=== PATIENT | female | born 1935 | race Caucasian/White ===

== ENCOUNTER 2017-03-25 17:17 | Inpatient (IN) ==
[2017-03-25] MEDS ORDERED: ONDANSETRON 4 MG/2 ML VIAL IV PRN (17:55)
[2017-03-25] MEDS ORDERED: ALBUTEROL 2.5 MG/3 ML NEB RESP TX PRN (17:55)
[2017-03-25] MEDS ORDERED: GLUCAGON 1 MG VIAL IM PRN (17:59)
[2017-03-25] MEDS ORDERED: DEXTROSE 50% 25 GM/50 ML SYRINGE IV PRN (17:59)
[2017-03-25 19:21] LABS: Basophils % 0.3 % (0.0-0.8); Eosinophils % 0.1 % (0.00-10.9); Hematocrit 31.1 VOL% (35.7-47.0); Hemoglobin 10.3 GM/DL (12.0-16.0); Immature Granulocytes % 2.4 %; Immature Granulocytes Absolute 0.28 #; Lymphocytes # 1.8 10*3/uL (1.4-4.0); Lymphocytes % 15.6 % (21.3-54.2); Mean Corpuscular HGB Conc 33.1 GM/DL (32-36); Mean Corpuscular Hemoglobin 29 PG (27-34); Mean Corpuscular Volume 87.6 FL (87-102); Mean Platelet Volume 9.7 FL (9.6-12.0); Monocytes # 0.8 10*3/uL (0.11-0.8); Monocytes % 6.9 % (1.7-12.7); Neutrophils # 8.7 10*3/uL (1.4-7.4); Neutrophils % 74.7 % (38.7-73.9); Platelet Count 410 T/CUMM (130-400); Red Blood Count 3.55 MC/CUMM (3.8-5.5); Red Cell Distribution Width 15.5 % (9.3-17.3); White Blood Count 11.7 T/CUMM (4-12)
--- NOTE | 2017-03-25 19:30 | Hospitalist History & Physical ---
Assessment and Plan (1) Renal failure Status: Acute Assessment and plan: Admit to ICU. Gentle hydration. Consult nephrology to eval. Avoid nephrotoxic agents. Renal ultrasound in am. Daily bmps Current Visit: Yes (2) Diabetes Status: Acute Assessment and plan: Pt. has been hypoglycemic. Hold oral agents. Schedule accuchecks achs and prn. Diabetic diet. Current Visit: Yes (3) Hypertension Status: Acute Assessment and plan: Pt. has history of htn currently hypotensive. hold those meds for now. gentle hydration. Current Visit: Yes History of Present Illness Chief complaint: hypoglycemia History of present illness: Ms. Ritter is a 81 year old white female with a history of hypertension, diabetes , memory loss, and elevated cholesterol that is a direct admit from [facility] ED for further evaluation of hypoglycemia and renal failure. Pt. was seen and examined in CCU bed 126 with family ( and son) present at the bedside. Pt.'s family states that for the last 2 weeks she has seen a decrease in appetite as well as low blood sugars in the 20s and 30s. Pt's also reports that 2 days ago she began to experience nausea and vomiting. He states that she has "just not been feeling well". He states that today he took her blood sugar and it was in the 20s. He reported the patient was very weak and somewhat confused.They took her to the ED in [facility] where she was noted to have a low blood sugar. She received D50 and was started on an infusion. ER physician Dr. Quan noted that her BUN and creatinine were 104 and 8.4 respectively. Patient also had a bicarb of 13. She was transferred to our facility for higher level of care. Pt was accepted by Dr. Acosta. Pt's and son deny any prior history of renal insufficiency in the patient. Pt. denies any change in her urinary output. Repeat labs were drawn and a CXR was ordered. We will monitor patient. Nephrology will be consulted. Home Medications Medication Instructions Recorded Confirmed Type Aspirin EC Tab 325 mg PO DAILY 03/25/17 03/25/17 History Furosemide Tab [Lasix Tab] 20 mg PO DAILY 03/25/17 03/25/17 History Glimepiride 4 mg PO DAILY 03/25/17 03/25/17 History Lisinopril/Hydrochlorothiazide 1 each PO DAILY 03/25/17 03/25/17 History [Lisinopril-Hctz 10-12.5 mg Tab] Simvastatin 40 mg PO DAILY W/SUPPER 03/25/17 03/25/17 History metFORMIN [Glucophage] 1,000 mg PO BID W/MEALS 03/25/17 03/25/17 History Allergies Allergy/AdvReac Type Severity Reaction Status Date / Time No Known Allergies Allergy Verified 03/25/17 17:52 Medical,Surgical,& Family Hx - Medical History Cardio: History of: Hypertension Endocrine: History of: Diabetes Mellitus (IDDM), Dyslipidemia Renal: History of: Renal Failure - Surgical History Abdominal Surgeries: Surgical HX of: Appendectomy Reproductive Surgeries: Surgical HX of;: Hysterectomy Orthopedic Surgeries: Surgical HX of;: Orthopedic Surgery (surgery for broken arm) - Social History Smoking Status: Never smoker Frequency of Alcohol Use: None Type of Drug Use: None Marital Status: Lives With:: Spouse Functional capacity: uses cane/walker 12 point system: reviewed and no additional remarkable complaints except as stated Exam - Constitutional Vitals: Period Temp Pulse Resp BP Sys/Terrazas Pulse Ox Last 24 Hr 97.8 F 92-94 16-21 94-104/55-61 98-99 General appearance: no acute distress - Head Head exam: Present: normal inspection, normocephalic - Eye Eye exam: Present: EOMI Pupils: Present: MARCIANO - Neck Neck exam: Present: normal inspection - Respiratory Respiratory exam: Present: clear to auscultation bilaterally. Absent: wheezes - Cardiovascular Cardiovascular exam: Present: regular rate and rhythm - GI/Abdominal GI/Abdominal exam: Present: normal bowel sounds, soft. Absent: tenderness - Neurological Exam Neurological exam: Present: alert, oriented X3 - Psychiatric Psychiatric exam: Present: normal affect, normal mood - Skin Skin exam: Present: normal color, warm, dry Results - Labs CBC & BMP: 03/25/17 19:00 Lab Results: I have reviewed the past 24 hour labs Labs: Labs reviewed from outside facility. Glucose 28 BUN 108 Creatinine 8.4 Calcium 9.2 sodium 135 Potassium 5.3 Chloride 90 Bicarbonate 13 Anion gap 36.9 WBC 12.9 RBC 3.77 Hgb 10.9 HCT 33.4 MCV 88.6 MCH 28.9 MCV HC 32.6 Platelets 460 Neutrophils 82.4 Lymphocytes 12.5
[2017-03-25 19:45] LABS: Osmolality,Calculated 294.8 MOS/KG (273-304)
[2017-03-25 19:46] LABS: Apearance,Urine CLOUDY (Clear); Bacteria,Urine Few /HPF (Few); Bilirubin,Urine Negative (Negative); Blood, Urine Small mg/dL (Negative); Glucose,Urine (UA) Negative (Negative); Ketones,Urine Negative (Negative); Nitrite,Urine Negative (Negative); Protein,Urine 100 MG/DL; Urine Color Yellow (Yellow); Urine Specific Gravity 1.008 (1.001-1.035); Urine Urobilinogen < 2.0 EU/DL (0.2-1.0); WBC,Urine 12532 /HPF (0-6)
[2017-03-25 19:47] LABS: Potassium 6.4 MMOL/L (3.5-5.1)
[2017-03-25 19:58] LABS: Lactic Acid 14.3 MMOL/L (0.4-2.0)
[2017-03-25] MEDS ORDERED: SODIUM CHLORIDE 0.9% 1,000 ML IV SCH (20:00)
--- NOTE | 2017-03-25 20:00 | XRay Report ---
Exam: XR chest 1V portable Date: 03/25/2017 7:26 PM Indication: Cough Comparison: None Technical: AP portable Findings: A right total shoulder prosthesis present. External cardiac leads are present. The heart is mildly prominent with minimal paradoxical cuffing a few small calcified nodes are suspected in the right perihilar region. No defined effusions or consolidating infiltrate. No pneumothorax. Impression: 1. No obvious consolidating infiltrate or effusion. 2. Stable position a right total shoulder prosthesis PROCEDURE INTERPRETED AT [facility] DEPARTMENT OF RADIOLOGY Final Report Signed by: Dr. Errol Carlos
[2017-03-25] MEDS ORDERED: ALBUTEROL 2.5 MG/3 ML NEB RESP TX ONE (20:32)
[2017-03-25] MEDS ORDERED: SODIUM POLYSTYRENE SULFATE 15 GM/60 ML BOTTLE PO STA (20:33)
[2017-03-25] MEDS ORDERED: CALCIUM GLUCONATE 2,000 MG in SODIUM CHLORIDE 0.9% 100 ML IV ONE (21:00)
[2017-03-25 21:06] LABS: ABG Base Excess -16.2 MMOL/L (-2.5-2.5); ABG HCO3 12.2 MMOL/L (20-26); ABG Oxygen Saturation 97.4 % (95-100); ABG PCO2 23.8 MM HG (35-48); ABG PH 7.236 (7.35-7.45); ABG TCO2 9.4 MMOL/L (23-27); Allen Test Positive; Pt O2 Delivery Device Room Air
[2017-03-25] MEDS: cefTRIAXone 2,000 MG in SODIUM CHLORIDE 0.9% 100 ML IV SCH (21:27)
[2017-03-25] MEDS: SODIUM BICARB INJ 50 MEQ in DEXTROSE 5% NACL 0.45% 1,000 ML IV SCH (21:28)
--- NOTE | 2017-03-26 04:00 | Event Note ---
IV access was lost on the patient. I attempted to place a triple-lumen catheter and a right femoral. The area was cleaned and draped in a sterile fashion. Introducer needle was inserted and good venous blood return was noted. However the needle slipped into the the artery when the wire was placed in the needle. When I inserted the triple lumen catheter it became apparent that this was an arterial bleed as opposed to a venous bleed. The catheter was along with the wire was taken out. Pressure dressing applied. Since patient is stable I would recommend that interventional radiology place a PICC line. Patient tolerated the procedure.
[2017-03-26] MEDS ORDERED: PROMETHAZINE 25 MG/1 ML VIAL IM PRN (04:36)
[2017-03-26] MEDS ORDERED: cefTRIAXone 1,000 MG VIAL IM SCH (05:00)
[2017-03-26 05:51] LABS: Basophils % 0.2 % (0.0-0.8); Hematocrit 29.1 VOL% (35.7-47.0); Immature Granulocytes % 1.5 %; Lymphocytes # 1.6 10*3/uL (1.4-4.0); Lymphocytes % 11.5 % (21.3-54.2); Mean Corpuscular HGB Conc 34.4 GM/DL (32-36); Mean Corpuscular Hemoglobin 29 PG (27-34); Mean Corpuscular Volume 84.6 FL (87-102); Mean Platelet Volume 10.2 FL (9.6-12.0); Monocytes # 0.8 10*3/uL (0.11-0.8); Monocytes % 5.6 % (1.7-12.7); Neutrophils % 81.2 % (38.7-73.9); Platelet Count 408 T/CUMM (130-400); Red Blood Count 3.44 MC/CUMM (3.8-5.5); Red Cell Distribution Width 15.3 % (9.3-17.3); White Blood Count 13.5 T/CUMM (4-12)
[2017-03-26 05:58] LABS: INR 1.1; PT Patient Result 11.9 SECS
[2017-03-26 06:22] LABS: Calcium 8.6 MG/DL (8.5-10.1); Magnesium 2.4 MG/DL (1.8-2.4); Osmolality,Calculated 295.7 MOS/KG (273-304); Potassium 5.8 MMOL/L (3.5-5.1); Risk Ratio 3.23; VLDL CHOLESTEROL 9.4 MG/DL
--- NOTE | 2017-03-26 07:58 | Ultrasound Report ---
Renal ultrasound Indication: Renal failure Comparison: None available Findings: Kidneys are normal in size with increased parenchymal echogenicity. There is a cyst on the lower pole of the left kidney that measures up to 1.3 cm in size. No hydronephrosis or nephrolithiasis is seen. The right renal length is 9.0 cm. The left renal length is 9.6 cm. No free fluid or other abnormality is seen. Impression: Slightly small echogenic kidneys. Simple appearing left renal cyst. No other evidence of abnormality demonstrated. Ultrasound images stored and captured. PROCEDURE INTERPRETED AT [facility] DEPARTMENT OF RADIOLOGY Final Report Signed by: Dr. Ignacio Ferro
[2017-03-26] MEDS: cefTRIAXone 2,000 MG in SODIUM CHLORIDE 0.9% 100 ML IV SCH (08:45)
--- NOTE | 2017-03-26 10:53 | Post Interventional Procedure ---
Pre-op diagnosis: urosepsis Post-op diagnosis: same Procedure: PICC placement Contrast: none Flouroscopy: 0.6 min Radiologist: Israel Fregoso Anesthesia: local Specimens: none sent Estimated blood loss: none Complications: none Condition: stable Description/Findings: 5 Fr dual lumen picc placement done and ready for use Assessment and Plan - Time spent with patient Time spent with patient: Less than 30 minutes
--- NOTE | 2017-03-26 10:57 | Interventional Radiology Rpt ---
IR PICC line insertion, US guide vascular access IR PICC Placement Peripherally-inserted central catheter (PICC) placement using ultrasound and fluoroscopic guidance Ultrasound of the left upper extremity Clinical Information: 81-year-old female with urosepsis. Failed attempt at bedside central line placement. All other IV access has been lost. PICC line is requested. Physician: Dr. Fregoso Procedure: The patient was advised of the benefits, risks, and alternatives of the procedure and informed consent was obtained. A time out was performed with verification of the patient's name, MRN, site of procedure, and type of procedure to be performed. The patient was positioned in the supine position on the angiographic table. The site was prepped and draped in the usual sterile fashion. Additionally, maximal sterile barrier technique was employed for the procedure. A label machine operator radiograph reveals no relevant abnormality. Ultrasound examination of the left arm demonstrates patent and compressible brachial and basilic veins. The cephalic vein is also widely patent and compressible. The left arm was prepped and draped in the usual sterile fashion. The left cephalic vein was again identified. Using ultrasound guidance, a 21 gauge needle was used to access the vein. A permanent ultrasound recording of vascular access was obtained for the patient's record. A 0.018" cope wire was then advanced into the vein. The needle was exchanged for a 5 Yemeni peel-away sheath. A 5 Yemeni double lumen Bard Solo PICC catheter was measured and trimmed to the 43 cm karel. The PICC line was advanced through the sheath and into the central circulation. The catheter tip was positioned at the cavo-atrial junction. The peel-away sheath was then removed. At the conclusion of the procedure, the catheter was secured in place using a Stat-Lock device. A sterile dressing was applied. The lumens aspirate and flush freely. The catheter is ready for immediate use. The patient tolerated the procedure well and was returned to the PRU in stable condition. EBL: < 5 mL. Complications: None. Fluoroscopy time: 0.6 minutes Total number of images for this study: 3 Conclusion: Successful placement of a 5 Yemeni double lumen Bard Solo power injectable PICC via the left cephalic vein. The catheter is ready for immediate use. PROCEDURE INTERPRETED AT [facility] DEPARTMENT OF RADIOLOGY Final Report Signed by: Israel Fregoso
[2017-03-26 11:32] LABS: ABG Base Excess -12.9 MMOL/L (-2.5-2.5); ABG Oxygen Saturation 97.2 % (95-100); ABG PCO2 25.2 MM HG (35-48); ABG PH 7.297 (7.35-7.45); ABG PO2 104.4 MM HG (80-95); ABG TCO2 12.8 MMOL/L (23-27); Allen Test Positive; Pt O2 Delivery Device Room Air
[2017-03-26] MEDS ORDERED: SODIUM CHLORIDE 0.9% 1,000 ML IV ONE (12:02)
[2017-03-26] MEDS ORDERED: SODIUM CHLORIDE 0.9% 500 ML IV ONE ×2 (12:04→14:30)
--- NOTE | 2017-03-26 12:07 | Hospitalist Progress Note ---
Assessment and Plan (1) Sepsis Status: Acute Assessment and plan: 1)sepsis from urinary source- on ceftriaxone, cultures pending. She has an elevated WBC today. She is afebrile. Her SBP has been in 70-90 at times and now that she has access she can receive agressive IVF resuscitation. 2)diabetes- ssi 3)IV access- PICC line today. 4)metabolic acidosis- from sepsis and renal failure. on bicarb infusion 5)ANGIE on CKD- creatinine is up to nearly 9. Hopefully this will improve with time and hydration and resolution of sepsis. Dr Acosta also had concnerns about metformin toxicity- this has been stopped. 6)hyperkalemia-improved, monitor. recheck in a couple of hours and retreat if indicated. Current Visit: Yes (2) Acute on chronic renal failure Status: Acute Current Visit: Yes (3) Metabolic acidosis Status: Acute Current Visit: Yes (4) Hyperkalemia Status: Acute Current Visit: Yes (5) Diabetes Status: Acute Current Visit: Yes Hospitalist: Subjective Interval history: Mrs Ritter is alert this morning and nauseated. She denies pain or shortness of breath but "feels(s) bad". Last night Dr Jefferson attempted right inguinal TLC but did not get it and she is to have PICC line today- we called this morning and IR arranged the schedule to do it then since she remains acidotic with hypotension and could not get IVF any other way. Good UOP. Exam - Constitutional Vitals: Period Temp Pulse Resp BP Sys/Terrazas Pulse Ox Last 24 Hr 97.8 F-98.3 F 91-97 13-21 85-112/37-61 96-99 General appearance: no acute distress, over weight - Head Head exam: Present: normocephalic, atraumatic - Eye Eye exam: Present: EOMI. Absent: scleral icterus - Respiratory Respiratory exam: Present: clear to auscultation bilaterally - Cardiovascular Cardiovascular exam: Present: regular rate and rhythm - GI/Abdominal GI/Abdominal exam: Present: normal bowel sounds, soft. Absent: tenderness - Extremities Exam Extremities exam: Absent: edema - Neurological Exam Neurological exam: Present: alert. Absent: oriented X3 - Skin Skin exam: Present: warm, dry Results - Labs CBC & BMP: 03/26/17 04:48 03/26/17 04:48
--- NOTE | 2017-03-26 13:07 | Nephrology Consult Note ---
History of Present Illness Chief complaint: Acute renal failure History of present illness: Ms. Ritter is a 81 year old female admitted on 03/25/2017 for nausea vomiting and acute renal failure. Patient apparently started having nausea and vomiting about 2 days prior to her admission. Apparently for the past 2 weeks or so the patient has had a decreased appetite per family. We were asked see the patient for acute renal failure and lactic acidosis. The patient's creatinine on admission was around 8.5 mg/dL and remains around this value to day. Patient also was noted to have a lactate level of around 13 and was taking Metformin. The patient also was on SEBLE inhibitor and diuretics. Patient denies any decrease in her urine output. She denies fever chills or any chest pain. She does take Advil on occasion but states she has not taken any recently. ROS: Head - denies headaches ENT - denies sore throat Lymphatics - denies lymphadenopathy Hematology - denies bleeding problems Heart - denies chest pain Lungs - denies shortness of breath Abdomen - denies abdominal pain Musculoskeletal - denies arthritis Skin - denies rash Neurology - denies stroke General - denies fever PE: General: in no acute distress Eyes: Pupils are round and reactive, conjunctivae are clear ENT: Nose is clear, O/P is benign Neck: Supple, no thyromegaly Lymphatics: No cervical, supraclavicular or axillary adenopathy Heart: Regular rate and rhythm, no edema Lungs: Clear to auscultation anteriorly, chest expansion symmetric Abdomen: Soft, normoactive bowel sounds, no hepatomegaly Musculoskeletal: No joint erythema or effusions or joint asymmetry Skin: Normal turgor, normal hydration, no rash Neuro/Psych: Alert and cooperative with fair insight Home Medications Medication Instructions Recorded Confirmed Type Aspirin EC Tab 325 mg PO DAILY 03/25/17 03/25/17 History Furosemide Tab [Lasix Tab] 20 mg PO DAILY 03/25/17 03/25/17 History Glimepiride 4 mg PO DAILY 03/25/17 03/25/17 History Lisinopril/Hydrochlorothiazide 1 each PO DAILY 03/25/17 03/25/17 History [Lisinopril-Hctz 10-12.5 mg Tab] Simvastatin 40 mg PO DAILY W/SUPPER 03/25/17 03/25/17 History metFORMIN [Glucophage] 1,000 mg PO BID W/MEALS 03/25/17 03/25/17 History Allergies Allergy/AdvReac Type Severity Reaction Status Date / Time No Known Allergies Allergy Verified 03/25/17 17:52 Medical,Surgical,& Family Hx - Medical History Cardio: History of: Hypertension Endocrine: History of: Diabetes Mellitus (IDDM), Dyslipidemia Renal: History of: Renal Failure - Surgical History Abdominal Surgeries: Surgical HX of: Appendectomy Reproductive Surgeries: Surgical HX of;: Hysterectomy Orthopedic Surgeries: Surgical HX of;: Orthopedic Surgery (surgery for broken arm) - Social History Smoking Status: Never smoker Frequency of Alcohol Use: None Type of Drug Use: None Exam - Vital Signs Vital signs: Period Temp Pulse Resp BP Sys/Terrazas Pulse Ox Last 24 Hr 97.8 F-98.3 F 91-97 13-21 85-112/37-61 96-99 Results - Labs CBC & BMP: 03/26/17 04:48 03/26/17 04:48 Assessment and Plan (1) Renal failure Status: Acute Assessment and plan: This patient has an acute renal injury related to volume depletion in the face of SEBLE inhibition and diuretics. I agree with the IV fluids. Her renal ultrasound showed some increased echogenicity in her kidneys. But no hydronephrosis Current Visit: Yes (2) Lactic acidosis Status: Acute Assessment and plan: I suspect this is related to her metformin use, we will increase the bicarbonate and her IV fluids. Current Visit: Yes (3) Diabetes Status: Acute Current Visit: Yes (4) Hyperkalemia Status: Acute Assessment and plan: This is improving and should continue to increase as we hydrate her and correct her acidosis Current Visit: Yes (5) Hypertension Status: Acute Current Visit: Yes (6) Metabolic acidosis Status: Acute Current Visit: Yes
[2017-03-26] MEDS: SODIUM BICARB INJ 150 MEQ in DEXTROSE 5% 1,000 ML IV SCH (15:03)
[2017-03-26 15:40] LABS: Calcium 7.4 MG/DL (8.5-10.1); Osmolality,Calculated 298.8 MOS/KG (273-304); Potassium 5.4 MMOL/L (3.5-5.1)
[2017-03-26] MEDS: SIMVASTATIN 40 MG TABLET PO SCH (17:17)
[2017-03-27 03:16] LABS: ABG Base Excess 0.7 MMOL/L (-2.5-2.5); ABG HCO3 25.1 MMOL/L (20-26); ABG PCO2 36.7 MM HG (35-48); ABG PH 7.437 (7.35-7.45); ABG PO2 89.7 MM HG (80-95); ABG TCO2 22.9 MMOL/L (23-27); Allen Test Positive; Pt O2 Delivery Device Room Air
[2017-03-27] MEDS: SODIUM BICARB INJ 150 MEQ in DEXTROSE 5% 1,000 ML IV SCH (04:27)
[2017-03-27] MEDS: SODIUM BICARB INJ 50 MEQ in DEXTROSE 5% NACL 0.45% 1,000 ML IV SCH (04:28)
[2017-03-27 06:48] LABS: Basophils % 0.3 % (0.0-0.8); Eosinophils # 0.2 10*3/uL (0.0-0.87); Eosinophils % 1.6 % (0.00-10.9); Hemoglobin 9.1 GM/DL (12.0-16.0); Immature Granulocytes % 0.7 %; Immature Granulocytes Absolute 0.07 #; Lymphocytes # 2.2 10*3/uL (1.4-4.0); Lymphocytes % 22.6 % (21.3-54.2); Mean Corpuscular HGB Conc 36.4 GM/DL (32-36); Mean Corpuscular Hemoglobin 29 PG (27-34); Mean Corpuscular Volume 80.1 FL (87-102); Mean Platelet Volume 9.9 FL (9.6-12.0); Neutrophils # 6.3 10*3/uL (1.4-7.4); Neutrophils % 64.8 % (38.7-73.9); Platelet Count 339 T/CUMM (130-400); Red Blood Count 3.12 MC/CUMM (3.8-5.5); Red Cell Distribution Width 14.8 % (9.3-17.3); White Blood Count 9.7 T/CUMM (4-12)
[2017-03-27 07:26] LABS: Calcium 7.1 MG/DL (8.5-10.1); Osmolality,Calculated 306.5 MOS/KG (273-304); Potassium 4.7 MMOL/L (3.5-5.1)
--- NOTE | 2017-03-27 08:12 | Nephrology Progress Note ---
Nephrology - PN: Subj Interval history: Patient feels better today. She still does not have much of an appetite. She denies nausea or vomiting. Review of systems: Pulmonary-patient denies shortness of breath Physical exam general the patient's chronically ill-appearing, she has no pitting edema, abdomen is soft with positive bowel sounds Assessment/plan 1. Acute renal failure-patient's creatinine is down to 8.1 mg/ dL, she had about 1100 cc of urine output over 24 hours yesterday, her blood urea nitrogen level did increase to around 120 from 110 yesterday. There is no acute indication for hemodialysis, will continue to monitor for recovery 2. Metabolic acidosis-patient's anion gap acidosis has improved markedly, I am going to adjust her IV fluids 3. Diabetes mellitus 4. Hypertension 5. UTI-continue antibiotics, E. coli grew out of her urine Exam (PN)-Nephrology - Vital Signs Vital signs: Period Temp Pulse Resp BP Sys/Terrazas Pulse Ox Last 24 Hr 98.1 F-98.9 F 78-109 12-23 86-142/44-83 94-99 - Lab 03/27/17 05:50 03/27/17 05:50 Most recent lab results ABG pH 7.437 (7.35-7.45) 03/27/17 03:16 ABG pCO2 36.7 MM HG (35-48) 03/27/17 03:16 ABG pO2 89.7 MM HG (80-95) 03/27/17 03:16 ABG HCO3 25.1 MMOL/L (20-26) 03/27/17 03:16 ABG O2 Saturation 98.0 % (95-100) 03/27/17 03:16 Calcium 7.1 MG/DL (8.5-10.1) L 03/27/17 05:50 Magnesium 2.4 MG/DL (1.8-2.4) 03/26/17 04:48 Assessment and Plan (1) Renal failure Status: Acute Assessment and plan: This patient has an acute renal injury related to volume depletion in the face of SEBLE inhibition and diuretics. I agree with the IV fluids. Her renal ultrasound showed some increased echogenicity in her kidneys. But no hydronephrosis Current Visit: Yes (2) Lactic acidosis Status: Acute Assessment and plan: I suspect this is related to her metformin use, we will increase the bicarbonate and her IV fluids. Current Visit: Yes (3) Diabetes Status: Acute Current Visit: Yes (4) Hyperkalemia Status: Acute Assessment and plan: This is improving and should continue to increase as we hydrate her and correct her acidosis Current Visit: Yes (5) Hypertension Status: Acute Current Visit: Yes (6) Metabolic acidosis Status: Acute Current Visit: Yes
--- NOTE | 2017-03-27 08:16 | XRay Report ---
XR chest 1V portable Indication: Sepsis Comparison: Chest x-ray March 25, 2017 Technique: Single frontal view of the chest. Findings: The cardiomediastinal silhouette is stable in configuration. Chronic change of the lungs without focal consolidation, pleural effusion, or pneumothorax. Left-sided PICC line tip projects over the distal SVC. Visualized osseous and surrounding soft tissue structures appear grossly unchanged. Reverse right glenohumeral prosthesis. IMPRESSION: No adverse interval change. PROCEDURE INTERPRETED AT [facility] DEPARTMENT OF RADIOLOGY Final Report Signed by: Dr Reji Hawk
[2017-03-27] MEDS ORDERED: DEXTROSE 5% NACL 0.45% 1,000 ML IV SCH (08:30)
[2017-03-27] MEDS: SODIUM CHLORIDE 0.45% 1,000 ML IV SCH (10:36)
[2017-03-27] MEDS: INSULIN LISPRO 100 UNIT/ML SUBCUT SCH ×3 (11:25→20:13)
--- NOTE | 2017-03-27 11:34 | Hospitalist Progress Note ---
Assessment and Plan (1) Sepsis Status: Acute Assessment and plan: 1)sepsis from Ecoli UTI- on ceftriaxone, BCx negative so far. She is afebrile and her WBC is down to normal range today. BP is also innormal range. She did not require pressors and responded to IVF resuscitation. sepsis resolved. 2)diabetes- ssi. take D5 out of fluids. on SSI, but was hypoglycemic at presentation because she was taking her oral meds up until she came to the hospital. Some are likely still lingering in her system given her renal failure. 3)IV access- PICC line 4)metabolic acidosis- resolved- bicarb out of IVF- now on 06/26 NS. 5)ANGIE on CKD- creatinine did not rise. Hopefully this will improve with time and hydration and resolution of sepsis. Dr Acosta also had concnerns about metformin toxicity- this has been stopped. 6)hyperkalemia-improved, monitor. 7)dispo- to floor today. begin PT and OT. Current Visit: Yes (2) Acute on chronic renal failure Status: Acute Current Visit: Yes (3) Metabolic acidosis Status: Acute Current Visit: Yes (4) Hyperkalemia Status: Acute Current Visit: Yes (5) Diabetes Status: Acute Current Visit: Yes Hospitalist: Subjective Interval history: Mrs Ritter is feeling great this morning. She rested well last night and has eaten this morning. She is visiting with her son and [id number] and . She denies pain or nausea. No shortness of breath. Exam - Constitutional Vitals: Period Temp Pulse Resp BP Sys/Terrazas Pulse Ox Last 24 Hr 97.8 F-98.9 F 78-103 13-23 86-142/44-83 93-100 General appearance: no acute distress, over weight - Eye Eye exam: Present: EOMI. Absent: scleral icterus - Respiratory Respiratory exam: Present: clear to auscultation bilaterally - Cardiovascular Cardiovascular exam: Present: regular rate and rhythm - GI/Abdominal GI/Abdominal exam: Present: normal bowel sounds, soft. Absent: tenderness - Extremities Exam Extremities exam: Absent: edema - Neurological Exam Neurological exam: Present: alert, oriented X3 - Psychiatric Psychiatric exam: Present: normal affect, normal mood - Skin Skin exam: Present: warm, dry Results - Labs CBC & BMP: 03/27/17 05:50 03/27/17 05:50 Lab Results: I have reviewed the past 24 hour labs
[2017-03-27] MEDS: SIMVASTATIN 40 MG TABLET PO SCH (16:35)
[2017-03-28] MEDS: SODIUM CHLORIDE 0.45% 1,000 ML IV SCH ×2 (03:00→18:05)
[2017-03-28 05:13] LABS: Basophils % 0.2 % (0.0-0.8); Eosinophils # 0.2 10*3/uL (0.0-0.87); Hematocrit 23.7 VOL% (35.7-47.0); Hemoglobin 8.4 GM/DL (12.0-16.0); Immature Granulocytes % 0.8 %; Immature Granulocytes Absolute 0.07 #; Lymphocytes % 23.2 % (21.3-54.2); Mean Corpuscular HGB Conc 35.4 GM/DL (32-36); Mean Corpuscular Hemoglobin 29 PG (27-34); Mean Corpuscular Volume 81.4 FL (87-102); Monocytes # 0.8 10*3/uL (0.11-0.8); Monocytes % 9.2 % (1.7-12.7); Neutrophils # 5.7 10*3/uL (1.4-7.4); Neutrophils % 64.6 % (38.7-73.9); Platelet Count 278 T/CUMM (130-400); Red Blood Count 2.91 MC/CUMM (3.8-5.5); Red Cell Distribution Width 14.6 % (9.3-17.3); White Blood Count 8.8 T/CUMM (4-12)
[2017-03-28 05:42] LABS: Calcium 6.6 MG/DL (8.5-10.1); Osmolality,Calculated 300.2 MOS/KG (273-304)
[2017-03-28] MEDS: INSULIN LISPRO 100 UNIT/ML SUBCUT SCH ×4 (07:26→20:43)
[2017-03-28 08:24] LABS: Alanine Aminotransferase 15 U/L (13-56); Albumin 2.6 G/DL (3.4-5.0); Alkaline Phosphatase 62 U/L (45-117); Aspartate Amino Transferase 19 U/L (0-37); Bilirubin,Direct < 0.100 MG/DL (0.0-0.20); Bilirubin,Indirect 0.3 MG/DL (0.0-1.0)
--- NOTE | 2017-03-28 08:47 | Nephrology Progress Note ---
Nephrology - PN: Subj Interval history: Patient is feeling better today. She denies shortness of breath. Review of systems GI she is eating better she denies nausea or vomiting Physical exam general the patient in no acute distress Assessment/plan 1. Acute renal failure-patient's creatinine is improved today around 6.8 mg/dL from 8.1 mg/dL yesterday, her urine output was greater than 2000 cc yesterday over 24 hours 2. Metabolic acidosis this is resolved 3. Diabetes mellitus 4. Hypertension Exam (PN)-Nephrology - Vital Signs Vital signs: Period Temp Pulse Resp BP Sys/Terrazas Pulse Ox Last 24 Hr 97.6 F-98.4 F 83-90 14-20 105-131/50-67 92-99 - Lab 03/28/17 04:27 03/28/17 04:27 Most recent lab results ABG pH 7.437 (7.35-7.45) 03/27/17 03:16 ABG pCO2 36.7 MM HG (35-48) 03/27/17 03:16 ABG pO2 89.7 MM HG (80-95) 03/27/17 03:16 ABG HCO3 25.1 MMOL/L (20-26) 03/27/17 03:16 ABG O2 Saturation 98.0 % (95-100) 03/27/17 03:16 Calcium 6.6 MG/DL (8.5-10.1) L 03/28/17 04:27 Magnesium 2.3 MG/DL (1.8-2.4) 03/27/17 05:50 Assessment and Plan (1) Renal failure Status: Acute Assessment and plan: This patient has an acute renal injury related to volume depletion in the face of SEBLE inhibition and diuretics. I agree with the IV fluids. Her renal ultrasound showed some increased echogenicity in her kidneys. But no hydronephrosis Current Visit: Yes (2) Lactic acidosis Status: Acute Assessment and plan: I suspect this is related to her metformin use, we will increase the bicarbonate and her IV fluids. Current Visit: Yes (3) Diabetes Status: Acute Current Visit: Yes (4) Hyperkalemia Status: Acute Assessment and plan: This is improving and should continue to increase as we hydrate her and correct her acidosis Current Visit: Yes (5) Hypertension Status: Acute Current Visit: Yes (6) Metabolic acidosis Status: Acute Current Visit: Yes
[2017-03-28] MEDS: ASPIRIN EC 325 MG TABLET PO SCH (09:01)
--- NOTE | 2017-03-28 12:40 | Hospitalist Progress Note ---
Assessment and Plan (1) Sepsis Status: Acute Assessment and plan: 1)sepsis from Ecoli UTI- on ceftriaxone, BCx negative so far. She is afebrile and her WBC is down to normal range. BP is also in normal range. She did not require pressors and responded to IVF resuscitation. sepsis resolved. 2)diabetes- SSI. was on orals at home, continue with short acting insulins while her renal function recovers. avoid metformin in future as this caused metabolic acidosis. 3)IV access- PICC line 4)metabolic acidosis- resolved 5)ANGIE on CKD- creatinine down to 6.8. Hopefully this will improve with time and hydration and resolution of sepsis. Dr Acosta also had concerns about metformin toxicity- this has been stopped. 6)hyperkalemia-improved, monitor. 7)dispo- to floor if we can get a bed today. begin PT and OT. Current Visit: Yes (2) Acute on chronic renal failure Status: Acute Current Visit: Yes (3) Metabolic acidosis Status: Acute Current Visit: Yes (4) Hyperkalemia Status: Acute Current Visit: Yes (5) Diabetes Status: Acute Current Visit: Yes Hospitalist: Subjective Interval history: Mrs Ritter looks good today and says she feels good too. She is eating a regular diet, denies pain or shortness of breath. She understands she stayed in unit yesterday because there wasn't a bed on a floor for her. Exam - Constitutional Vitals: Period Temp Pulse Resp BP Sys/Terrazas Pulse Ox Last 24 Hr 97.8 F-98.4 F 83-90 14-20 105-136/50-64 92-96 General appearance: normal weight, no acute distress - Eye Eye exam: Present: EOMI. Absent: scleral icterus - Respiratory Respiratory exam: Present: clear to auscultation bilaterally - Cardiovascular Cardiovascular exam: Present: regular rate and rhythm - GI/Abdominal GI/Abdominal exam: Present: normal bowel sounds, soft. Absent: tenderness - Extremities Exam Extremities exam: Absent: edema Results - Labs CBC & BMP: 03/28/17 04:27 03/28/17 04:27 Lab Results: I have reviewed the past 24 hour labs
[2017-03-28] MEDS ORDERED: DEXTROSE 50% 25 GM/50 ML VIAL IV PRN (13:00)
[2017-03-28] MEDS: SIMVASTATIN 40 MG TABLET PO SCH (18:05)
[2017-03-29 05:31] LABS: Basophils % 0.2 % (0.0-0.8); Eosinophils # 0.2 10*3/uL (0.0-0.87); Eosinophils % 2.4 % (0.00-10.9); Hemoglobin 7.6 GM/DL (12.0-16.0); Immature Granulocytes % 0.9 %; Immature Granulocytes Absolute 0.08 #; Lymphocytes # 1.7 10*3/uL (1.4-4.0); Lymphocytes % 18.6 % (21.3-54.2); Mean Corpuscular HGB Conc 34.5 GM/DL (32-36); Mean Corpuscular Hemoglobin 29 PG (27-34); Monocytes # 0.8 10*3/uL (0.11-0.8); Monocytes % 8.4 % (1.7-12.7); Neutrophils # 6.4 10*3/uL (1.4-7.4); Neutrophils % 69.5 % (38.7-73.9); Platelet Count 233 T/CUMM (130-400); Red Blood Count 2.65 MC/CUMM (3.8-5.5); Red Cell Distribution Width 14.7 % (9.3-17.3); White Blood Count 9.2 T/CUMM (4-12)
[2017-03-29 06:04] LABS: Calcium 6.5 MG/DL (8.5-10.1); Osmolality,Calculated 293.2 MOS/KG (273-304); Potassium 3.8 MMOL/L (3.5-5.1)
[2017-03-29] MEDS: ASPIRIN EC 325 MG TABLET PO SCH (08:41)
[2017-03-29] MEDS: INSULIN LISPRO 100 UNIT/ML SUBCUT SCH ×4 (09:12→20:46)
[2017-03-29] MEDS: SODIUM CHLORIDE 0.45% 1,000 ML IV SCH (09:50)
--- NOTE | 2017-03-29 13:35 | Physician Query Form ---
CLICK EDIT DOCUMENT TO SELECT QUERY ANSWER --> OK --> SIGN Emilee Pugh RN, CCDS Certified Clinical [employer] W) [phone] (f) [phone] [email or web address] PROVIDERS: Make your selection(s) from the choices in EACH section by typing an "x" and enter comments in the comment section. Please use your independent medical judgment in providing your response. This request does not imply that any particular answer is desired or expected. CLINICAL INDICATORS: (Providers should not edit this section) The medical record indicates that the patient was admitted with sepsis, metabolic acidosis, lactic acidosis, creatinine of 8.3# on the 1st that has decreased to 5.10# on the 5th, GFR of 4 that has increased to 7 on the 5th", "patient has an acute renal injury related to volume depletion in the face of SEBLE inhibition and diuretics" and the patient was treated with Sodium Bicarbonate/ and bolused with NS. Based on the above, could you clarify the appropriate diagnosis, if significant , that supports the above abnormalities and additional evaluation, monitoring, and/or treatment rendered: (x ) Acute renal failure without ATN ( ) Acute renal failure with ATN ( ) Other, please specify: ( ) Clinically unable to determine COMMENTS: PLEASE ALSO DOCUMENT RESPONSE IN PROGRESS NOTES AND/OR DISCHARGE SUMMARY Use of terms such as suspected, likely, or probable (associated with a specific diagnosis that is being evaluated, monitored, or treated as if it exists) are acceptable and can be restated in the discharge summary if not ruled out. MTDD
--- NOTE | 2017-03-29 14:04 | Hospitalist Progress Note ---
Assessment and Plan (1) Sepsis Status: Acute Assessment and plan: 1)Ecoli UTI- on ceftriaxone day 3, no longer septic. 2)diabetes- SSI for now until renal function recovers and orals could be restarted. Do not restart metformin. 3)PICC line 4)metabolic acidosis- resolving as renal failure resolves. 5)Kilo on CKD- improving with hydration. renal failure is secondary to sepsis and ddehydration as well as metformin toxicity. 6)hyperkalemia- resolved 7)dispo- to swing bed. Current Visit: Yes (2) Acute on chronic renal failure Status: Acute Current Visit: Yes (3) Metabolic acidosis Status: Acute Current Visit: Yes (4) Hyperkalemia Status: Acute Current Visit: Yes (5) Diabetes Status: Acute Current Visit: Yes Hospitalist: Subjective Interval history: Mrs Ritter is feeling well today. She is interested in swing bed placement. Her creatinine continues to fall each day but is still sig above baseline. Hgb has dropped with hydration also now 7.6. Exam - Constitutional Vitals: Period Temp Pulse Resp BP Sys/Terrazas Pulse Ox Last 24 Hr 97.9 F-98.6 F 68-93 16-18 105-158/50-68 93-95 General appearance: normal weight, no acute distress - Head Head exam: Present: normocephalic, atraumatic - Eye Eye exam: Present: EOMI. Absent: scleral icterus - Respiratory Respiratory exam: Present: clear to auscultation bilaterally - Cardiovascular Cardiovascular exam: Present: regular rate and rhythm - GI/Abdominal GI/Abdominal exam: Present: normal bowel sounds, soft. Absent: tenderness - Extremities Exam Extremities exam: Absent: edema - Neurological Exam Neurological exam: Present: alert, oriented X3, other (general debility) - Skin Skin exam: Present: warm, dry Results - Labs CBC & BMP: 03/29/17 05:03 03/29/17 05:03 Lab Results: I have reviewed the past 24 hour labs
[2017-03-29] MEDS ORDERED: SODIUM CHLORIDE 0.9% 250 ML IV PRN (14:06)
[2017-03-29 14:30] LABS: % Iron Saturation 22.2 % (18-50); Ferritin 89.2 ng/ml (8-252)
[2017-03-29 14:39] LABS: Folate 18.7 NG/ML (5.4-24.0)
--- NOTE | 2017-03-29 14:46 | Nephrology Progress Note ---
Nephrology - PN: Subj Interval history: Patient denies shortness of breath. Review of systems GI she denies nausea vomiting Physical exam general the patient is in no acute distress Assessment/plan 1. Acute renal failure-this patient's creatinine continues to improve at 5.1 mg/dL today. She states she is eating better and drinking better. I am going to discontinue her IV fluids. 2. Metabolic acidosis this is resolved 3. Diabetes mellitus 4. Hypertension 5. Hyperkalemia-this is resolved-the patient's potassium is 3.9 mg/dL today she may end up needing some supplementation will continue to monitor this. Exam (PN)-Nephrology - Vital Signs Vital signs: Period Temp Pulse Resp BP Sys/Terrazas Pulse Ox Last 24 Hr 97.9 F-98.6 F 68-93 16-18 105-158/50-68 93-95 - Lab 03/29/17 05:03 03/29/17 05:03 Most recent lab results ABG pH 7.437 (7.35-7.45) 03/27/17 03:16 ABG pCO2 36.7 MM HG (35-48) 03/27/17 03:16 ABG pO2 89.7 MM HG (80-95) 03/27/17 03:16 ABG HCO3 25.1 MMOL/L (20-26) 03/27/17 03:16 ABG O2 Saturation 98.0 % (95-100) 03/27/17 03:16 Calcium 6.5 MG/DL (8.5-10.1) L 03/29/17 05:03 Magnesium 2.3 MG/DL (1.8-2.4) 03/27/17 05:50 Assessment and Plan (1) Renal failure Status: Acute Assessment and plan: This patient has an acute renal injury related to volume depletion in the face of SEBLE inhibition and diuretics. I agree with the IV fluids. Her renal ultrasound showed some increased echogenicity in her kidneys. But no hydronephrosis Current Visit: Yes (2) Lactic acidosis Status: Acute Assessment and plan: I suspect this is related to her metformin use, we will increase the bicarbonate and her IV fluids. Current Visit: Yes (3) Diabetes Status: Acute Current Visit: Yes (4) Hyperkalemia Status: Acute Assessment and plan: This is improving and should continue to increase as we hydrate her and correct her acidosis Current Visit: Yes (5) Hypertension Status: Acute Current Visit: Yes (6) Metabolic acidosis Status: Acute Current Visit: Yes
[2017-03-29] MEDS: SIMVASTATIN 40 MG TABLET PO SCH (18:04)
[2017-03-30] MEDS: SODIUM CHLORIDE 0.45% 1,000 ML IV SCH ×2 (00:14→14:47)
[2017-03-30] MEDS: INSULIN LISPRO 100 UNIT/ML SUBCUT SCH ×4 (09:18→21:38)
[2017-03-30] MEDS: ASPIRIN EC 325 MG TABLET PO SCH (09:27)
--- NOTE | 2017-03-30 11:17 | Nephrology Progress Note ---
Nephrology - PN: Subj Interval history: Patient denies shortness of breath. Review of systems GI she denies vomiting Physical exam general patient is in no acute distress, she has some mild lower extremity swelling Assessment/plan 1. Acute renal failure related to volume depletion-this patient 's creatinine has been improving her creatinine was 5.1 mg/dL yesterday on admission her creatinine was around 8 mg/dL. 2. Metabolic acidosis-this is resolved the patient had developed metformin toxicity with a lactate level of around 12-14 3. Diabetes mellitus this is controlled 4. Hypertension this is controlled I will be happy to see the patient in follow-up upon discharge Exam (PN)-Nephrology - Vital Signs Vital signs: Period Temp Pulse Resp BP Sys/Terrazas Pulse Ox Last 24 Hr 97.1 F-98.3 F 60-88 16-20 102-158/40-88 93-98 - Lab 03/29/17 05:03 03/29/17 05:03 Most recent lab results ABG pH 7.437 (7.35-7.45) 03/27/17 03:16 ABG pCO2 36.7 MM HG (35-48) 03/27/17 03:16 ABG pO2 89.7 MM HG (80-95) 03/27/17 03:16 ABG HCO3 25.1 MMOL/L (20-26) 03/27/17 03:16 ABG O2 Saturation 98.0 % (95-100) 03/27/17 03:16 Calcium 6.5 MG/DL (8.5-10.1) L 03/29/17 05:03 Magnesium 2.3 MG/DL (1.8-2.4) 03/27/17 05:50 Assessment and Plan (1) Renal failure Status: Acute Assessment and plan: This patient has an acute renal injury related to volume depletion in the face of SEBLE inhibition and diuretics. I agree with the IV fluids. Her renal ultrasound showed some increased echogenicity in her kidneys. But no hydronephrosis Current Visit: Yes (2) Lactic acidosis Status: Acute Assessment and plan: I suspect this is related to her metformin use, we will increase the bicarbonate and her IV fluids. Current Visit: Yes (3) Diabetes Status: Acute Current Visit: Yes (4) Hyperkalemia Status: Acute Assessment and plan: This is improving and should continue to increase as we hydrate her and correct her acidosis Current Visit: Yes (5) Hypertension Status: Acute Current Visit: Yes (6) Metabolic acidosis Status: Acute Current Visit: Yes
--- NOTE | 2017-03-30 12:34 | Hospitalist Progress Note ---
Hospitalist: Subjective Interval history: Patient awake and comfortable, has generalized weakness. She was admitted with acute renal failure, which is improving. Exam - Constitutional Vitals: Period Temp Pulse Resp BP Sys/Terrazas Pulse Ox Last 24 Hr 97.1 F-98.3 F 60-88 16-20 102-158/40-88 93-98 Exam: General: No Acute Distress HEENT: Normocephalic, atraumatic, Extra ocular movements intact Neck: Supple, No JVD Chest: Clear to auscultation B/L CV: S1 + S2 audible without murmur, gallop or rub Abd: soft, NT, Non-distended, BS + Ext: No edema Skin: No purpura, bruising or rash Rheumatologic: No Joint deformities Neurologic: Awake and alert Results - Labs CBC & BMP: 03/29/17 05:03 03/29/17 05:03 - Impressions Assessment and Plan: (1) Sepsis due to E. coli UTI, POA Status: Acute Assessment and plan: Patient was admitted with E. coli UTI and sepsis, both present on admission, continue IV Rocephin Current Visit: Yes (2) Acute on chronic renal failure Status: Acute Current Visit: Yes Her creatinine is improving, nephrology is following (3) Metabolic acidosis secondary to lactic acidosis Status: Acute Current Visit: Yes Resolved. This was due to metformin toxicity (4) Hyperkalemia Status: Acute Current Visit: Yes Resolved (5) Diabetes Mellitus-II Status: Acute Current Visit: Yes Controlled Physical deconditioning, she is getting physical therapy. Should be able to go to swing bed next week
[2017-03-30] MEDS: SIMVASTATIN 40 MG TABLET PO SCH (16:42)
[2017-03-31] MEDS: SODIUM CHLORIDE 0.45% 1,000 ML IV SCH (06:02)
[2017-03-31 06:17] LABS: Basophils # 0.1 10*3/uL (0.0-0.2); Basophils % 0.6 % (0.0-0.8); Eosinophils # 0.2 10*3/uL (0.0-0.87); Eosinophils % 2.8 % (0.00-10.9); Hematocrit 31.5 VOL% (35.7-47.0); Immature Granulocytes % 0.6 %; Immature Granulocytes Absolute 0.05 #; Lymphocytes # 1.8 10*3/uL (1.4-4.0); Lymphocytes % 21.3 % (21.3-54.2); Mean Corpuscular HGB Conc 34.6 GM/DL (32-36); Mean Corpuscular Hemoglobin 29 PG (27-34); Mean Corpuscular Volume 84.5 FL (87-102); Monocytes # 0.7 10*3/uL (0.11-0.8); Monocytes % 8.3 % (1.7-12.7); Neutrophils # 5.7 10*3/uL (1.4-7.4); Neutrophils % 66.4 % (38.7-73.9); Platelet Count 243 T/CUMM (130-400); Red Cell Distribution Width 14.5 % (9.3-17.3); White Blood Count 8.6 T/CUMM (4-12)
[2017-03-31 06:36] LABS: Red Blood Count 3.73 MC/CUMM (3.8-5.5)
[2017-03-31 06:37] LABS: Hemoglobin 10.9 GM/DL (12.0-16.0)
[2017-03-31 06:41] LABS: Calcium 7.7 MG/DL (8.5-10.1); Osmolality,Calculated 286.7 MOS/KG (273-304); Potassium 3.7 MMOL/L (3.5-5.1)
[2017-03-31] MEDS: ASPIRIN EC 325 MG TABLET PO SCH (08:40)
[2017-03-31] MEDS: INSULIN LISPRO 100 UNIT/ML SUBCUT SCH ×2 (08:40→12:36)
--- NOTE | 2017-03-31 11:22 | Discharge Summary ---
Hospital Course - Hospital Course Hospital Course: 82-year-old female admitted to the hospital with UTI and sepsis with acute renal failure. She also had acute toxicity with lactic acidosis secondary to metformin. Her renal function has improved dramatically. She is reached maximal benefit from this inpatient hospitalization and is ready for discharge to swing bed in [place]. The patient was treated for E. coli urinary tract infection with Rocephin for 7 days. She has finished a full course of antibiotics. She was on lisinopril hydrochlorothiazide and metformin as an outpatient. Those medications should be held until her renal function returns to normal. Her creatinine today is stable at 2.4 which is down from 5 which is down from 8 on admission. (1) Sepsis due to E. coli UTI, POA Status: Acute Assessment and plan: Patient was admitted with E. coli UTI and sepsis, both present on admission, continue IV Rocephin Current Visit: Yes (2) Acute on chronic renal failure Status: Acute Current Visit: Yes Her creatinine is improving, nephrology is following (3) Metabolic acidosis secondary to lactic acidosis Status: Acute Current Visit: Yes Resolved. This was due to metformin toxicity (4) Hyperkalemia Status: Acute Current Visit: Yes Resolved (5) Diabetes Mellitus-II Status: Acute Current Visit: Yes Controlled Physical deconditioning, she is getting physical therapy. Should be able to go to swing bed today - Time spent with patient Time with patient DS: Greater than 30 minutes (Total discharge time for this patient, including [id number] time, clinical documentation, medication reconciliation, and discharge planning was 38 minutes.) Diagnosis - Discharge Diagnosis (1) UTI (urinary tract infection) Status: Resolved (2) Acute on chronic renal failure Status: Acute (3) Diabetes Status: Chronic (4) Hypertension Status: Chronic (5) Lactic acidosis Status: Resolved (6) Metabolic acidosis Status: Resolved (7) Sepsis Status: Resolved Discharge Plan - Discharge Data Disposition: Disch/Xfer to Snf Condition at Discharge: Stable Discharge Diet: advance to your usual diet Activity: resume usual activities as tolerated Hygiene: no restrictions Weight Bearing at Discharge: full weight bearing Contact your physician if you experience:: fever over 101, Shortness of breath - Discharge Medications Continue Glimepiride 4 mg PO DAILY Aspirin EC Tab 325 mg PO DAILY Simvastatin 40 mg PO DAILY W/SUPPER Discontinued metFORMIN [Glucophage] 1,000 mg PO BID W/MEALS Lisinopril/Hydrochlorothiazide [Lisinopril-Hctz 10-12.5 mg Tab] 1 each PO DAILY Furosemide Tab [Lasix Tab] 20 mg PO DAILY - Follow Up or Referral - Forms/Instructions Additional Discharge Instructions: Follow-up with primary care physician after discharge from swing bed. Exam - Constitutional Vitals: Period Temp Pulse Resp BP Sys/Terrazas Pulse Ox Last 24 Hr 97.2 F-98.5 F 62-80 18-18 133-188/63-79 94-96 Discharge Results Labs on day of discharge: Labs from last 24 hours 03/31/17 03/31/17 03/31/17 07:05 05:56 05:56 WBC 8.6 RBC 3.73 L D Hgb 10.9 L D Hct 31.5 L MCV 84.5 L MCH 29 MCHC 34.6 RDW 14.5 Plt Count 243 MPV 10.0 Neut % (Auto) 66.4 Lymph % (Auto) 21.3 Gem % (Auto) 8.3 Eos % (Auto) 2.8 Baso % (Auto) 0.6 Neut # (Auto) 5.7 Lymph # (Auto) 1.8 Gem # (Auto) 0.7 Eos # (Auto) 0.2 Baso # (Auto) 0.1 Immature Gran % 0.6 Nucleated RBC % 0.0 Immature Gran # 0.05 Nucleated RBCs # 0.00 Immature Plt Fraction 0.0 Sodium 138 Potassium 3.7 Chloride 104 Carbon Dioxide 25 Anion Gap 12.7 BUN 44 H Creatinine 2.40 H GFR Calculation 18 BUN/Creatinine Ratio 18.00 Glucose 115 H POC Glucose 137 H Calculated Osmolality 286.7 Calcium 7.7 L 03/30/17 03/30/17 20:41 16:24 WBC RBC Hgb Hct MCV MCH MCHC RDW Plt Count MPV Neut % (Auto) Lymph % (Auto) Gem % (Auto) Eos % (Auto) Baso % (Auto) Neut # (Auto) Lymph # (Auto) Gem # (Auto) Eos # (Auto) Baso # (Auto) Immature Gran % Nucleated RBC % Immature Gran # Nucleated RBCs # Immature Plt Fraction Sodium Potassium Chloride Carbon Dioxide Anion Gap BUN Creatinine GFR Calculation BUN/Creatinine Ratio Glucose POC Glucose 256 H 262 H Calculated Osmolality Calcium DS: Provider Date of admission: 03/25/17 17:19 Primary care physician: . No PCP Attending physician on admission: Trev Jauregui MD Consults: 03/25/17 18:54 Consult to Physician [CONS] Routine Comment: Consulting Provider: Adria Bennett When should Consulting Provider be notified: Now Person Notified: Dr. Bennett's office Date Notified: 03/26/17 Time Notified: 10:59 Consult Notification Comment: Left Message Spoke to Goldie at [phone] via phone with patient information 03/27/17 14:46 Consult to Occupational Therapy [CONS] Routine Reason for Occupational Therapy: Evaluate and Treat Consult to Physical Therapy [CONS] Routine Reason for Physical Therapy: Evaluate and Treat Discharging clinician: Trev Jauregui MD Expected date of discharge: 03/31/17
--- NOTE | 2017-03-31 11:37 | Nephrology Progress Note ---
Nephrology - PN: Subj Interval history: She denies shortness of breath. No new symptoms. Exam (PN)-Nephrology - Vital Signs Vital signs: Period Temp Pulse Resp BP Sys/Terrazas Pulse Ox Last 24 Hr 97.2 F-98.5 F 62-80 18-18 133-188/63-79 94-96 Exam: ENT: Normal Cardiovascular: Regular rate and rhythm. No murmur rub or gallop Lungs: Clear Extremities: No edema - Lab 03/31/17 05:56 03/31/17 05:56 Most recent lab results ABG pH 7.437 (7.35-7.45) 03/27/17 03:16 ABG pCO2 36.7 MM HG (35-48) 03/27/17 03:16 ABG pO2 89.7 MM HG (80-95) 03/27/17 03:16 ABG HCO3 25.1 MMOL/L (20-26) 03/27/17 03:16 ABG O2 Saturation 98.0 % (95-100) 03/27/17 03:16 Calcium 7.7 MG/DL (8.5-10.1) L 03/31/17 05:56 Magnesium 2.3 MG/DL (1.8-2.4) 03/27/17 05:50 Assessment and Plan (1) ARF (acute renal failure) Status: Acute Assessment and plan: 82-year-old woman with: * ARF. Much improved. Creatinine down to 2.4. Urine output adequate. Volume status normal * Diabetes mellitus * Metabolic acidosis. Resolved * Hypertension Current Visit: Yes (2) Diabetes Status: Chronic Current Visit: Yes (3) Hypertension Status: Chronic Current Visit: Yes (4) Lactic acidosis Status: Resolved Current Visit: Yes
[2017-03-31 12:41] VITALS: BP 153/76
== END 2017-03-31 14:40 | DRG 917 ==
LOC: N.CC 17:19 → SUATTDRO 17:19 → N.5E 03-28 15:21
PROVIDERS: ADMIT Family Medicine; ATTEND Family Medicine

== ENCOUNTER 2018-02-24 23:30 | Inpatient (IN) ==
[2018-02-24] MEDS ORDERED: SODIUM CHLORIDE 0.9% 1,000 ML IV STA (23:55)
[2018-02-25] MEDS ORDERED: ONDANSETRON 4 MG/2 ML VIAL ONE ×2 (00:25→00:41)
[2018-02-25] MEDS ORDERED: PIPERACILLIN/TAZOBACTAM 3,375 MG VIAL IV ONE (00:26)
[2018-02-25] MEDS ORDERED: SODIUM CHLORIDE 0.9% 100 ML IV ONE (00:27)
[2018-02-25] MEDS ORDERED: NOREPINEPHRINE 4 MG/4 ML VIAL IV ONE (00:34)
[2018-02-25] MEDS: NOREPINEPHRINE 8 MG in SODIUM CHLORIDE 0.9% 242 ML IV PRN ×5 (00:40→21:27)
[2018-02-25] MEDS: ONDANSETRON 4 MG/2 ML VIAL IV PRN ×2 (00:42→08:32)
[2018-02-25 00:48] LABS: Basophils # 0.1 10*3/uL (0.0-0.2); Basophils % 0.3 % (0.0-0.8); Eosinophils # 0.1 10*3/uL (0.0-0.87); Eosinophils % 0.3 % (0.00-10.9); Hematocrit 36.8 VOL% (35.7-47.0); Hemoglobin 12.3 GM/DL (12.0-16.0); Immature Granulocytes Absolute 0.47 #; Lymphocytes # 2.4 10*3/uL (1.4-4.0); Lymphocytes % 10.3 % (21.3-54.2); Mean Corpuscular HGB Conc 33.4 GM/DL (32-36); Mean Corpuscular Hemoglobin 31 PG (27-34); Mean Corpuscular Volume 92.2 FL (87-102); Mean Platelet Volume 10.2 FL (9.6-12.0); Monocytes # 0.1 10*3/uL (0.11-0.8); Monocytes % 0.5 % (1.7-12.7); Neutrophils # 20.1 10*3/uL (1.4-7.4); Neutrophils % 86.6 % (38.7-73.9); Platelet Count 321 T/CUMM (130-400); Red Blood Count 3.99 MC/CUMM (3.8-5.5); Red Cell Distribution Width 12.8 % (9.3-17.3); White Blood Count 23.2 T/CUMM (4-12)
[2018-02-25] MEDS ORDERED: VANCOMYCIN 1,000 MG VIAL ONE (00:57)
[2018-02-25 01:06] LABS: Alanine Aminotransferase 18 U/L (13-56); Alkaline Phosphatase 90 U/L (45-117); Aspartate Amino Transferase 51 U/L (0-37); Blood Urea Nitrogen 82 MG/DL (7-18); Calcium 8.9 MG/DL (8.5-10.1); Glucose 333 MG/DL (74-106); Osmolality,Calculated 314.5 MOS/KG (273-304); Potassium 3.4 MMOL/L (3.5-5.1); Sodium 139 MMOL/L (136-145); Total Protein 6.3 G/DL (6.4-8.3)
[2018-02-25 01:12] LABS: Band Neutrophils 6 % (0-10); Lymphocytes 16 % (20-55); Platelet Estimate Normal; Segmented Neutrophils 78 % (50-85); Total Cells Counted 100
[2018-02-25 01:13] LABS: Apearance,Urine CLOUDY (Clear); Bilirubin,Urine Negative (Negative); Blood, Urine Negative (Negative); Glucose,Urine (UA) Negative (Negative); Ketones,Urine Negative (Negative); Nitrite,Urine Negative (Negative); Protein,Urine 100 MG/DL; RBC,Urine 45 /HPF (0-4); Squamous Epithelial Cell,Urine Occasional /HPF (0-10); Urine Color Amber (Yellow); Urine Urobilinogen < 2.0 EU/DL (0.2-1.0); WBC,Urine 7917 /HPF (0-6)
[2018-02-25] MEDS ORDERED: SODIUM CHLORIDE 0.9% 1,000 ML IV ONE (02:47)
[2018-02-25] MEDS ORDERED: MEROPENEM 500 MG in SODIUM CHLORIDE 0.9% 100 ML IV SCH (03:00)
[2018-02-25] MEDS ORDERED: SODIUM CHLORIDE 0.9% 1,000 ML IV SCH (03:30)
[2018-02-25 04:38] LABS: Basophils # 0.1 10*3/uL (0.0-0.2); Basophils % 0.4 % (0.0-0.8); Hematocrit 39.1 VOL% (35.7-47.0); Hemoglobin 13.1 GM/DL (12.0-16.0); Immature Granulocytes % 3.3 %; Immature Granulocytes Absolute 0.69 #; Lymphocytes % 4.7 % (21.3-54.2); Mean Corpuscular HGB Conc 33.5 GM/DL (32-36); Mean Corpuscular Hemoglobin 31 PG (27-34); Mean Corpuscular Volume 91.6 FL (87-102); Mean Platelet Volume 10.4 FL (9.6-12.0); Monocytes # 0.8 10*3/uL (0.11-0.8); Monocytes % 3.9 % (1.7-12.7); Neutrophils # 18.1 10*3/uL (1.4-7.4); Neutrophils % 87.7 % (38.7-73.9); Platelet Count 322 T/CUMM (130-400); Red Blood Count 4.27 MC/CUMM (3.8-5.5); Red Cell Distribution Width 12.9 % (9.3-17.3); White Blood Count 20.6 T/CUMM (4-12)
[2018-02-25 04:52] LABS: Albumin 2.9 G/DL (3.4-5.0); Bilirubin,Direct 0.44 MG/DL (0.0-0.20); Bilirubin,Indirect 0.9 MG/DL (0.0-1.0); Bilirubin,Total 1.3 MG/DL (0.2-1.0); Calcium 7.9 MG/DL (8.5-10.1); Osmolality,Calculated 314.4 MOS/KG (273-304); Potassium 3.8 MMOL/L (3.5-5.1); Total Protein 6.3 G/DL (6.4-8.3)
[2018-02-25 05:00] LABS: ABG Base Excess -13.6 MMOL/L (-2.5-2.5); ABG HCO3 14.2 MMOL/L (20-26); ABG Oxygen Saturation 97.3 % (95-100); ABG PCO2 33.3 MM HG (35-48); ABG PH 7.217 (7.35-7.45); ABG TCO2 12.1 MMOL/L (23-27); Allen Test Positive
[2018-02-25 05:21] LABS: Band Neutrophils 7 % (0-10); Giant Platelets Few; Lymphocytes 7 % (20-55); Platelet Estimate Adequate; Segmented Neutrophils 84 % (50-85); Total Cells Counted 100
[2018-02-25] MEDS: SODIUM BICARB INJ 75 MEQ in SODIUM CHLORIDE 0.45% 1,000 ML IV SCH ×3 (05:54→20:21)
[2018-02-25] MEDS: INSULIN REGULAR 100 UNIT/ML SUBCUT SCH ×3 (05:59→17:39)
[2018-02-25 07:08] LABS: Lactic Acid 4.6 MMOL/L (0.4-2.0)
[2018-02-25] MEDS: ASPIRIN 325 MG TABLET PO SCH (08:32)
[2018-02-25] MEDS: FAMOTIDINE 20 MG/2 ML VIAL IV SCH (08:33)
[2018-02-25] MEDS: ENOXAPARIN 30 MG/0.3 ML SYRINGE SUBCUT SCH (08:33)
[2018-02-25] MEDS ORDERED: ASPIRIN EC 325 MG TABLET PO SCH (09:00)
[2018-02-25] MEDS: MEROPENEM 1,000 MG in SYRINGE 1 EACH IV SCH (15:47)
[2018-02-25 23:19] LABS: Potassium 3.4 MMOL/L (3.5-5.1)
[2018-02-26] MEDS: INSULIN REGULAR 100 UNIT/ML SUBCUT SCH ×5 (00:25→23:52)
[2018-02-26] MEDS: NOREPINEPHRINE 8 MG in SODIUM CHLORIDE 0.9% 242 ML IV PRN ×5 (02:02→23:51)
[2018-02-26] MEDS ORDERED: DILTIAZEM 25 MG/5 ML VIAL IV ONE (02:45)
[2018-02-26] MEDS ORDERED: DILTIAZEM 50 MG/10 ML VIAL IV ONE (03:00)
[2018-02-26] MEDS: SODIUM BICARB INJ 75 MEQ in SODIUM CHLORIDE 0.45% 1,000 ML IV SCH ×2 (03:23→12:33)
[2018-02-26] MEDS ORDERED: SODIUM CHLORIDE 0.9% 500 ML IV ONE (03:38)
[2018-02-26] MEDS ORDERED: POTASSIUM CHLORIDE RIDER 10 MEQ in PREMIX 1 EACH IV PRN (03:39)
[2018-02-26] MEDS ORDERED: MEROPENEM 500 MG in SYRINGE 1 EACH IV SCH (04:00)
[2018-02-26] MEDS: POTASSIUM CHLORIDE RIDER 20 MEQ in PREMIX 1 EACH IV PRN ×2 (04:19→05:05)
[2018-02-26] MEDS: MEROPENEM 1,000 MG in SYRINGE 1 EACH IV SCH ×2 (05:05→15:24)
[2018-02-26 05:21] LABS: Basophils # 0.1 10*3/uL (0.0-0.2); Basophils % 0.6 % (0.0-0.8); Hematocrit 34.1 VOL% (35.7-47.0); Hemoglobin 12.3 GM/DL (12.0-16.0); Immature Granulocytes % 2.2 %; Immature Granulocytes Absolute 0.41 #; Lymphocytes # 0.8 10*3/uL (1.4-4.0); Lymphocytes % 4.5 % (21.3-54.2); Mean Corpuscular HGB Conc 36.1 GM/DL (32-36); Mean Corpuscular Hemoglobin 31 PG (27-34); Mean Corpuscular Volume 85.5 FL (87-102); Mean Platelet Volume 10.8 FL (9.6-12.0); Monocytes # 0.6 10*3/uL (0.11-0.8); Monocytes % 3.3 % (1.7-12.7); Neutrophils # 16.8 10*3/uL (1.4-7.4); Neutrophils % 89.4 % (38.7-73.9); Platelet Count 237 T/CUMM (130-400); Red Blood Count 3.99 MC/CUMM (3.8-5.5); Red Cell Distribution Width 13.3 % (9.3-17.3); White Blood Count 18.8 T/CUMM (4-12)
[2018-02-26 05:42] LABS: Albumin 1.8 G/DL (3.4-5.0); Bilirubin,Total 0.7 MG/DL (0.2-1.0); Calcium 6.6 MG/DL (8.5-10.1); Potassium 4.1 MMOL/L (3.5-5.1); Total Protein 4.9 G/DL (6.4-8.3)
[2018-02-26 05:44] LABS: Troponin I 0.051 NG/ML (0.00-0.045)
[2018-02-26 05:45] LABS: Microcytosis 1+
[2018-02-26 05:46] LABS: Burr Cells Slight; Hypochromasia Slight; Platelet Estimate Normal
[2018-02-26] MEDS ORDERED: VANCOMYCIN INJ 1,500 MG in SODIUM CHLORIDE 0.9% 300 ML IV SCH (06:00)
[2018-02-26 06:02] LABS: INR 1.3
[2018-02-26] MEDS: ASPIRIN 325 MG TABLET PO SCH (08:54)
[2018-02-26] MEDS: ENOXAPARIN 30 MG/0.3 ML SYRINGE SUBCUT SCH (08:54)
[2018-02-26] MEDS: FAMOTIDINE 20 MG/2 ML VIAL IV SCH (08:54)
[2018-02-26] MEDS: SODIUM CHLORIDE 23.4% CONC INJ 38.5 MEQ, SODIUM BICARB INJ 100 MEQ in STERILE WATER INJ... IV SCH ×2 (12:30→22:35)
[2018-02-27] MEDS: MEROPENEM 1,000 MG in SYRINGE 1 EACH IV SCH ×2 (04:12→16:24)
[2018-02-27] MEDS: NOREPINEPHRINE 8 MG in SODIUM CHLORIDE 0.9% 242 ML IV PRN ×3 (04:29→17:45)
[2018-02-27] MEDS: INSULIN REGULAR 100 UNIT/ML SUBCUT SCH ×4 (05:35→23:55)
[2018-02-27 05:59] LABS: Basophils # 0.1 10*3/uL (0.0-0.2); Basophils % 0.4 % (0.0-0.8); Eosinophils % 0.1 % (0.00-10.9); Hematocrit 28.9 VOL% (35.7-47.0); Hemoglobin 10.3 GM/DL (12.0-16.0); Immature Granulocytes % 0.2 %; Immature Granulocytes Absolute 0.03 #; Lymphocytes # 0.8 10*3/uL (1.4-4.0); Lymphocytes % 5.9 % (21.3-54.2); Mean Corpuscular HGB Conc 35.6 GM/DL (32-36); Mean Corpuscular Hemoglobin 31 PG (27-34); Mean Corpuscular Volume 86.5 FL (87-102); Monocytes # 0.3 10*3/uL (0.11-0.8); Monocytes % 2.3 % (1.7-12.7); Neutrophils # 12.8 10*3/uL (1.4-7.4); Neutrophils % 91.1 % (38.7-73.9); Platelet Count 189 T/CUMM (130-400); Red Blood Count 3.34 MC/CUMM (3.8-5.5); Red Cell Distribution Width 13.8 % (9.3-17.3)
[2018-02-27 06:18] LABS: Calcium 6.6 MG/DL (8.5-10.1); Osmolality,Calculated 310.1 MOS/KG (273-304); Potassium 3.6 MMOL/L (3.5-5.1)
[2018-02-27 06:21] LABS: Lactic Acid 0.7 MMOL/L (0.4-2.0)
[2018-02-27 06:28] LABS: Band Neutrophils 5 % (0-10); Lymphocytes 5 % (20-55); Segmented Neutrophils 86 % (50-85); Total Cells Counted 100
[2018-02-27 06:29] LABS: Burr Cells Slight; Hypochromasia 1+; Microcytosis Slight; Ovalocytes Slight; Platelet Estimate Normal
[2018-02-27] MEDS: POTASSIUM CHLORIDE RIDER 20 MEQ in PREMIX 1 EACH IV PRN (06:45)
[2018-02-27] MEDS: SODIUM CHLORIDE 23.4% CONC INJ 38.5 MEQ, SODIUM BICARB INJ 100 MEQ in STERILE WATER INJ... IV SCH (09:52)
[2018-02-27] MEDS: ENOXAPARIN 30 MG/0.3 ML SYRINGE SUBCUT SCH (09:58)
[2018-02-27] MEDS: ASPIRIN 325 MG TABLET PO SCH (09:59)
[2018-02-27] MEDS: FAMOTIDINE 20 MG/2 ML VIAL IV SCH (09:59)
[2018-02-27] MEDS: LEVOFLOXACIN INJ 500 MG in PREMIX 1 EACH IV SCH (16:30)
[2018-02-27] MEDS ORDERED: MORPHINE 4 MG/1 ML VIAL IV ONE (22:00)
[2018-02-27] MEDS: ONDANSETRON 4 MG/2 ML VIAL IV PRN (22:07)
[2018-02-28 03:53] LABS: Basophils % 0.1 % (0.0-0.8); Eosinophils % 0.2 % (0.00-10.9); Hematocrit 26.1 VOL% (35.7-47.0); Hemoglobin 8.9 GM/DL (12.0-16.0); Immature Granulocytes % 0.6 %; Immature Granulocytes Absolute 0.09 #; Lymphocytes # 0.7 10*3/uL (1.4-4.0); Lymphocytes % 5.1 % (21.3-54.2); Mean Corpuscular HGB Conc 34.1 GM/DL (32-36); Mean Corpuscular Hemoglobin 30 PG (27-34); Mean Corpuscular Volume 89.1 FL (87-102); Mean Platelet Volume 10.8 FL (9.6-12.0); Monocytes # 0.5 10*3/uL (0.11-0.8); Monocytes % 3.8 % (1.7-12.7); Neutrophils # 12.5 10*3/uL (1.4-7.4); Neutrophils % 90.2 % (38.7-73.9); Platelet Count 155 T/CUMM (130-400); Red Blood Count 2.93 MC/CUMM (3.8-5.5); Red Cell Distribution Width 13.9 % (9.3-17.3); White Blood Count 13.9 T/CUMM (4-12)
[2018-02-28 04:21] LABS: Albumin 1.5 G/DL (3.4-5.0); Bilirubin,Total 0.6 MG/DL (0.2-1.0); Calcium 6.7 MG/DL (8.5-10.1); Potassium 3.7 MMOL/L (3.5-5.1); Total Protein 4.6 G/DL (6.4-8.3)
[2018-02-28] MEDS: MEROPENEM 1,000 MG in SYRINGE 1 EACH IV SCH ×2 (04:35→16:24)
[2018-02-28 04:53] LABS: Hypochromasia 1+; Microcytosis Slight; Ovalocytes Slight; Platelet Estimate Adequate
[2018-02-28] MEDS: INSULIN REGULAR 100 UNIT/ML SUBCUT SCH ×3 (06:02→18:23)
[2018-02-28] MEDS: SODIUM CHLORIDE 23.4% CONC INJ 38.5 MEQ, SODIUM BICARB INJ 100 MEQ in STERILE WATER INJ... IV SCH (08:38)
[2018-02-28] MEDS: FAMOTIDINE 20 MG/2 ML VIAL IV SCH (08:39)
[2018-02-28] MEDS: ENOXAPARIN 30 MG/0.3 ML SYRINGE SUBCUT SCH (08:40)
[2018-02-28] MEDS: ASPIRIN 325 MG TABLET PO SCH (08:40)
[2018-02-28] MEDS ORDERED: METOPROLOL TARTRATE 25 MG TABLET PO SCH (09:00)
[2018-02-28] MEDS: NOREPINEPHRINE 8 MG in SODIUM CHLORIDE 0.9% 242 ML IV PRN (11:47)
[2018-02-28] MEDS ORDERED: SODIUM CHLORIDE 0.9% 500 ML IV ONE (16:18)
[2018-02-28] MEDS: ALBUMIN 25% 25 GM in PREMIX 1 EACH IV SCH (16:24)
[2018-03-01] MEDS: NOREPINEPHRINE 8 MG in SODIUM CHLORIDE 0.9% 242 ML IV PRN (00:29)
[2018-03-01] MEDS: INSULIN REGULAR 100 UNIT/ML SUBCUT SCH ×4 (00:53→17:14)
[2018-03-01] MEDS: ALBUMIN 25% 25 GM in PREMIX 1 EACH IV SCH ×2 (00:54→08:43)
[2018-03-01 04:01] LABS: Basophils % 0.2 % (0.0-0.8); Eosinophils # 0.1 10*3/uL (0.0-0.87); Eosinophils % 0.9 % (0.00-10.9); Hematocrit 25.9 VOL% (35.7-47.0); Hemoglobin 8.8 GM/DL (12.0-16.0); Immature Granulocytes Absolute 0.22 #; Lymphocytes % 9.4 % (21.3-54.2); Mean Corpuscular Hemoglobin 30 PG (27-34); Mean Corpuscular Volume 89.6 FL (87-102); Mean Platelet Volume 10.5 FL (9.6-12.0); Monocytes # 0.6 10*3/uL (0.11-0.8); Monocytes % 5.6 % (1.7-12.7); Neutrophils % 81.9 % (38.7-73.9); Platelet Count 158 T/CUMM (130-400); Red Blood Count 2.89 MC/CUMM (3.8-5.5); Red Cell Distribution Width 13.9 % (9.3-17.3); White Blood Count 10.9 T/CUMM (4-12)
[2018-03-01 04:30] LABS: Albumin 2.5 G/DL (3.4-5.0); Bilirubin,Total 0.7 MG/DL (0.2-1.0); Calcium 6.7 MG/DL (8.5-10.1); Osmolality,Calculated 314.1 MOS/KG (273-304); Potassium 3.4 MMOL/L (3.5-5.1); Total Protein 5.2 G/DL (6.4-8.3)
[2018-03-01] MEDS: MEROPENEM 1,000 MG in SYRINGE 1 EACH IV SCH ×2 (04:55→16:37)
[2018-03-01] MEDS: ENOXAPARIN 30 MG/0.3 ML SYRINGE SUBCUT SCH (08:41)
[2018-03-01] MEDS: FAMOTIDINE 20 MG/2 ML VIAL IV SCH (08:41)
[2018-03-01] MEDS: ASPIRIN 325 MG TABLET PO SCH (08:43)
[2018-03-01] MEDS ORDERED: METOCLOPRAMIDE 10 MG/2 ML VIAL IV ONE (08:44)
[2018-03-01] MEDS ORDERED: METOCLOPRAMIDE 10 MG/2 ML VIAL IV PRN (08:44)
[2018-03-01] MEDS: SODIUM CHLORIDE 23.4% CONC INJ 38.5 MEQ, SODIUM BICARB INJ 100 MEQ in STERILE WATER INJ... IV SCH (09:25)
[2018-03-01] MEDS: DEXT 5% NACL 0.45% KCL 20 MEQ 20 MEQ/1,000 ML BAG IV SCH ×2 (11:05→23:02)
[2018-03-01] MEDS: ONDANSETRON 4 MG/2 ML VIAL IV PRN ×2 (15:03→21:12)
[2018-03-01] MEDS: LEVOFLOXACIN INJ 500 MG in PREMIX 1 EACH IV SCH (16:39)
[2018-03-02] MEDS: INSULIN REGULAR 100 UNIT/ML SUBCUT SCH ×4 (00:44→18:40)
[2018-03-02] MEDS: MEROPENEM 1,000 MG in SYRINGE 1 EACH IV SCH ×2 (05:41→15:51)
[2018-03-02 06:18] LABS: Basophils % 0.2 % (0.0-0.8); Eosinophils # 0.2 10*3/uL (0.0-0.87); Hematocrit 24.3 VOL% (35.7-47.0); Hemoglobin 8.4 GM/DL (12.0-16.0); Immature Granulocytes % 4.2 %; Immature Granulocytes Absolute 0.25 #; Lymphocytes % 16.5 % (21.3-54.2); Mean Corpuscular HGB Conc 34.6 GM/DL (32-36); Mean Corpuscular Hemoglobin 31 PG (27-34); Mean Corpuscular Volume 88.7 FL (87-102); Mean Platelet Volume 10.9 FL (9.6-12.0); Monocytes # 0.4 10*3/uL (0.11-0.8); Monocytes % 5.9 % (1.7-12.7); Neutrophils # 4.2 10*3/uL (1.4-7.4); Neutrophils % 70.2 % (38.7-73.9); Platelet Count 130 T/CUMM (130-400); Red Blood Count 2.74 MC/CUMM (3.8-5.5); Red Cell Distribution Width 13.6 % (9.3-17.3); White Blood Count 5.9 T/CUMM (4-12)
[2018-03-02 06:44] LABS: Band Neutrophils 1 % (0-10); Eosinophils 4 % (0-10); Lymphocytes 9 % (20-55); Microcytosis Slight; Segmented Neutrophils 83 % (50-85); Total Cells Counted 100
[2018-03-02 06:45] LABS: Hypochromasia 1+; Platelet Estimate Decreased
[2018-03-02 06:54] LABS: Calcium 6.7 MG/DL (8.5-10.1); Osmolality,Calculated 309.5 MOS/KG (273-304); Potassium 3.6 MMOL/L (3.5-5.1); Total Protein 4.5 G/DL (6.4-8.3)
[2018-03-02] MEDS: ENOXAPARIN 30 MG/0.3 ML SYRINGE SUBCUT SCH (09:34)
[2018-03-02] MEDS: DEXT 5% NACL 0.45% KCL 20 MEQ 20 MEQ/1,000 ML BAG IV SCH (09:35)
[2018-03-02] MEDS: ASPIRIN 325 MG TABLET PO SCH (09:35)
[2018-03-02] MEDS: FAMOTIDINE 20 MG/2 ML VIAL IV SCH (09:35)
[2018-03-02] MEDS ORDERED: NYSTATIN 500,000 UNIT/5 ML UDCUP SWISH/SWAL SCH (13:00)
[2018-03-02] MEDS: NYSTATIN 500,000 UNIT/5 ML UDCUP SWISH/SWAL SCH ×3 (15:50→22:44)
[2018-03-02] MEDS ORDERED: DIGOXIN 0.5 MG/2 ML AMP IV ONE (20:07)
[2018-03-02] MEDS: FLUTICASONE 50 MCG NASAL SPRAY 16 GM BOTTLE BOTH NARES SCH (22:43)
[2018-03-03] MEDS: INSULIN REGULAR 100 UNIT/ML SUBCUT SCH ×4 (03:28→19:08)
[2018-03-03] MEDS ORDERED: METOPROLOL TARTRATE 25 MG TABLET PO ONE (04:59)
[2018-03-03] MEDS: MEROPENEM 1,000 MG in SYRINGE 1 EACH IV SCH (05:10)
[2018-03-03 05:11] LABS: Basophils % 0.5 % (0.0-0.8); Eosinophils # 0.2 10*3/uL (0.0-0.87); Hematocrit 26.4 VOL% (35.7-47.0); Hemoglobin 9.1 GM/DL (12.0-16.0); Immature Granulocytes % 4.1 %; Immature Granulocytes Absolute 0.26 #; Lymphocytes % 15.1 % (21.3-54.2); Mean Corpuscular HGB Conc 34.5 GM/DL (32-36); Mean Corpuscular Hemoglobin 31 PG (27-34); Mean Corpuscular Volume 88.6 FL (87-102); Mean Platelet Volume 11.1 FL (9.6-12.0); Monocytes # 0.4 10*3/uL (0.11-0.8); Monocytes % 5.9 % (1.7-12.7); NRBC # 0.03 10*3/uL; Neutrophils # 4.5 10*3/uL (1.4-7.4); Neutrophils % 71.4 % (38.7-73.9); Platelet Count 169 T/CUMM (130-400); Red Blood Count 2.98 MC/CUMM (3.8-5.5); Red Cell Distribution Width 13.8 % (9.3-17.3); White Blood Count 6.3 T/CUMM (4-12)
[2018-03-03 05:57] LABS: Albumin 1.7 G/DL (3.4-5.0); Bilirubin,Total 0.6 MG/DL (0.2-1.0); Calcium 6.8 MG/DL (8.5-10.1); Osmolality,Calculated 307.5 MOS/KG (273-304); Potassium 4.1 MMOL/L (3.5-5.1); Total Protein 4.6 G/DL (6.4-8.3)
[2018-03-03 06:28] LABS: Band Neutrophils 15 % (0-10); Eosinophils 2 % (0-10); Hypochromasia 2+; Lymphocytes 15 % (20-55); Metamyelocytes 3 %; Myelocytes 1 %; Platelet Estimate Normal; Segmented Neutrophils 58 % (50-85); Total Cells Counted 100
[2018-03-03] MEDS: METOPROLOL TARTRATE 25 MG TABLET PO SCH ×2 (10:26→21:24)
[2018-03-03] MEDS: NYSTATIN 500,000 UNIT/5 ML UDCUP SWISH/SWAL SCH ×4 (10:26→21:24)
[2018-03-03] MEDS: PANTOPRAZOLE 40 MG VIAL IV SCH ×2 (13:59→21:24)
[2018-03-03] MEDS: cefTRIAXone 1,000 MG in SYRINGE 1 EACH IV SCH (14:02)
[2018-03-03] MEDS: CLINDAMYCIN INJ 300 MG in PREMIX 1 EACH IV SCH ×2 (14:07→22:36)
[2018-03-03] MEDS: FAMOTIDINE 20 MG/2 ML VIAL IV SCH (14:26)
[2018-03-03] MEDS: FLUTICASONE 50 MCG NASAL SPRAY 16 GM BOTTLE BOTH NARES SCH ×2 (17:26→21:24)
[2018-03-03 18:36] LABS: Apearance,Urine CLOUDY (Clear); Bilirubin,Urine Negative (Negative); Blood, Urine Small mg/dL (Negative); Glucose,Urine (UA) Negative (Negative); Ketones,Urine 5 mg/dL (Negative); Nitrite,Urine Negative (Negative); Protein,Urine 30 MG/DL; RBC,Urine 4 /HPF (0-4); Squamous Epithelial Cell,Urine Occasional /HPF (0-10); Urine Color Yellow (Yellow); Urine Specific Gravity 1.011 (1.001-1.035); WBC,Urine 563 /HPF (0-6)
[2018-03-04] MEDS: INSULIN REGULAR 100 UNIT/ML SUBCUT SCH ×4 (01:09→18:24)
[2018-03-04 04:06] LABS: Basophils % 0.4 % (0.0-0.8); Eosinophils # 0.2 10*3/uL (0.0-0.87); Eosinophils % 2.3 % (0.00-10.9); Hematocrit 25.2 VOL% (35.7-47.0); Hemoglobin 8.4 GM/DL (12.0-16.0); Immature Granulocytes % 4.2 %; Immature Granulocytes Absolute 0.34 #; Lymphocytes # 1.1 10*3/uL (1.4-4.0); Mean Corpuscular HGB Conc 33.3 GM/DL (32-36); Mean Corpuscular Hemoglobin 31 PG (27-34); Mean Corpuscular Volume 92.6 FL (87-102); Mean Platelet Volume 10.4 FL (9.6-12.0); Monocytes # 0.5 10*3/uL (0.11-0.8); Monocytes % 6.6 % (1.7-12.7); Neutrophils # 5.9 10*3/uL (1.4-7.4); Neutrophils % 72.5 % (38.7-73.9); Platelet Count 177 T/CUMM (130-400); Red Blood Count 2.72 MC/CUMM (3.8-5.5); Red Cell Distribution Width 13.6 % (9.3-17.3); White Blood Count 8.1 T/CUMM (4-12)
[2018-03-04 04:47] LABS: Calcium 6.9 MG/DL (8.5-10.1); Osmolality,Calculated 308.3 MOS/KG (273-304); Potassium 3.7 MMOL/L (3.5-5.1)
[2018-03-04 05:07] LABS: Band Neutrophils 6 % (0-10); Eosinophils 2 % (0-10); Hypochromasia 1+; Lymphocytes 10 % (20-55); Platelet Estimate Adequate; Segmented Neutrophils 75 % (50-85); Total Cells Counted 100
[2018-03-04] MEDS: POTASSIUM CHLORIDE RIDER 20 MEQ in PREMIX 1 EACH IV PRN (05:15)
[2018-03-04] MEDS: CLINDAMYCIN INJ 300 MG in PREMIX 1 EACH IV SCH ×3 (06:04→21:41)
[2018-03-04] MEDS ORDERED: MAGNESIUM SULF RIDER 4 GM in PREMIX 1 EACH IV PRN ×2 (07:39→09:13)
[2018-03-04] MEDS ORDERED: MAGNESIUM SULF RIDER 2 GM in PREMIX 1 EACH IV PRN ×2 (07:39→09:13)
[2018-03-04] MEDS: METOPROLOL TARTRATE 25 MG TABLET PO SCH ×2 (09:49→21:36)
[2018-03-04] MEDS: NYSTATIN 500,000 UNIT/5 ML UDCUP SWISH/SWAL SCH ×4 (09:49→21:35)
[2018-03-04] MEDS: PANTOPRAZOLE 40 MG VIAL IV SCH ×2 (09:50→21:37)
[2018-03-04] MEDS: FLUTICASONE 50 MCG NASAL SPRAY 16 GM BOTTLE BOTH NARES SCH ×2 (09:59→21:34)
[2018-03-04] MEDS: cefTRIAXone 1,000 MG in SYRINGE 1 EACH IV SCH (13:54)
[2018-03-04] MEDS: FUROSEMIDE 40 MG TABLET PO SCH (13:58)
[2018-03-05] MEDS: INSULIN REGULAR 100 UNIT/ML SUBCUT SCH ×5 (00:05→23:47)
[2018-03-05 06:01] LABS: Osmolality,Calculated 300.4 MOS/KG (273-304); Potassium 3.7 MMOL/L (3.5-5.1)
[2018-03-05 06:05] LABS: Risk Ratio 4.72; VLDL CHOLESTEROL 33.8 MG/DL
[2018-03-05] MEDS: CLINDAMYCIN INJ 300 MG in PREMIX 1 EACH IV SCH (06:14)
[2018-03-05 07:09] LABS: Basophils % 0.5 % (0.0-0.8); Eosinophils # 0.2 10*3/uL (0.0-0.87); Hematocrit 24.2 VOL% (35.7-47.0); Hemoglobin 8.1 GM/DL (12.0-16.0); Immature Granulocytes % 4.1 %; Immature Granulocytes Absolute 0.33 #; Lymphocytes # 0.9 10*3/uL (1.4-4.0); Lymphocytes % 11.4 % (21.3-54.2); Mean Corpuscular HGB Conc 33.5 GM/DL (32-36); Mean Corpuscular Hemoglobin 31 PG (27-34); Mean Platelet Volume 11.1 FL (9.6-12.0); Monocytes # 0.6 10*3/uL (0.11-0.8); Monocytes % 7.3 % (1.7-12.7); NRBC # 0.02 10*3/uL; Neutrophils % 74.7 % (38.7-73.9); Platelet Count 204 T/CUMM (130-400); Red Blood Count 2.66 MC/CUMM (3.8-5.5); Red Cell Distribution Width 14.1 % (9.3-17.3)
[2018-03-05 07:30] LABS: Band Neutrophils 3 % (0-10); Eosinophils 2 % (0-10); Hypochromasia 1+; Lymphocytes 12 % (20-55); Platelet Estimate Adequate; Segmented Neutrophils 78 % (50-85); Total Cells Counted 100
[2018-03-05] MEDS: NYSTATIN 500,000 UNIT/5 ML UDCUP SWISH/SWAL SCH ×4 (09:17→21:06)
[2018-03-05] MEDS: METOPROLOL TARTRATE 25 MG TABLET PO SCH ×2 (09:18→21:08)
[2018-03-05] MEDS: FUROSEMIDE 40 MG TABLET PO SCH (09:18)
[2018-03-05] MEDS: FLUTICASONE 50 MCG NASAL SPRAY 16 GM BOTTLE BOTH NARES SCH ×2 (09:20→21:44)
[2018-03-05] MEDS: PANTOPRAZOLE 40 MG VIAL IV SCH (09:25)
[2018-03-05] MEDS: POLYCARBOPHIL 625 MG TABLET PO SCH ×2 (14:39→21:07)
[2018-03-05] MEDS: CLINDAMYCIN 300 MG CAPSULE PO SCH ×2 (14:39→21:08)
[2018-03-05] MEDS: SIMVASTATIN 40 MG TABLET PO SCH (18:03)
[2018-03-05] MEDS: METOCLOPRAMIDE 5 MG TABLET PO SCH ×2 (18:03→21:07)
[2018-03-05] MEDS: CEFUROXIME 500 MG TABLET PO SCH (21:07)
[2018-03-05] MEDS: PANTOPRAZOLE 40 MG TABLET PO SCH (21:08)
[2018-03-05] MEDS: FERROUS SULFATE 325 MG TABLET PO SCH (22:01)
[2018-03-06 05:22] LABS: Basophils % 0.2 % (0.0-0.8); Eosinophils # 0.1 10*3/uL (0.0-0.87); Eosinophils % 1.7 % (0.00-10.9); Hematocrit 23.5 VOL% (35.7-47.0); Hemoglobin 7.7 GM/DL (12.0-16.0); Immature Granulocytes % 4.5 %; Immature Granulocytes Absolute 0.38 #; Lymphocytes # 1.2 10*3/uL (1.4-4.0); Lymphocytes % 14.8 % (21.3-54.2); Mean Corpuscular HGB Conc 32.8 GM/DL (32-36); Mean Corpuscular Hemoglobin 31 PG (27-34); Mean Corpuscular Volume 93.6 FL (87-102); Mean Platelet Volume 10.7 FL (9.6-12.0); Monocytes # 0.8 10*3/uL (0.11-0.8); Monocytes % 9.6 % (1.7-12.7); Neutrophils # 5.8 10*3/uL (1.4-7.4); Neutrophils % 69.2 % (38.7-73.9); Platelet Count 226 T/CUMM (130-400); Red Blood Count 2.51 MC/CUMM (3.8-5.5); Red Cell Distribution Width 13.9 % (9.3-17.3); White Blood Count 8.4 T/CUMM (4-12)
[2018-03-06 05:45] LABS: Band Neutrophils 4 % (0-10); Eosinophils 1 % (0-10); Hypochromasia 1+; Lymphocytes 11 % (20-55); Microcytosis Slight; Segmented Neutrophils 80 % (50-85); Total Cells Counted 100
[2018-03-06 05:54] LABS: Calcium 7.4 MG/DL (8.5-10.1); Osmolality,Calculated 293.4 MOS/KG (273-304); Potassium 3.7 MMOL/L (3.5-5.1)
[2018-03-06] MEDS: INSULIN REGULAR 100 UNIT/ML SUBCUT SCH ×3 (06:23→18:15)
[2018-03-06] MEDS: CLINDAMYCIN 300 MG CAPSULE PO SCH ×3 (06:23→21:12)
[2018-03-06] MEDS: METOCLOPRAMIDE 5 MG TABLET PO SCH ×3 (09:12→16:59)
[2018-03-06] MEDS: CEFUROXIME 500 MG TABLET PO SCH ×2 (09:12→21:11)
[2018-03-06] MEDS: METOPROLOL TARTRATE 25 MG TABLET PO SCH ×2 (09:12→21:11)
[2018-03-06] MEDS: FUROSEMIDE 40 MG TABLET PO SCH (09:12)
[2018-03-06] MEDS: POLYCARBOPHIL 625 MG TABLET PO SCH ×3 (09:12→21:10)
[2018-03-06] MEDS: FERROUS SULFATE 325 MG TABLET PO SCH ×2 (09:12→21:11)
[2018-03-06] MEDS: NYSTATIN 500,000 UNIT/5 ML UDCUP SWISH/SWAL SCH ×4 (09:13→21:10)
[2018-03-06] MEDS: POLYETHYLENE GLYCOL POWDER 17 GM PACK PO SCH (09:13)
[2018-03-06] MEDS: PANTOPRAZOLE 40 MG TABLET PO SCH ×2 (09:13→21:10)
[2018-03-06] MEDS: FLUTICASONE 50 MCG NASAL SPRAY 16 GM BOTTLE BOTH NARES SCH ×2 (09:15→21:15)
[2018-03-06] MEDS ORDERED: SODIUM CHLORIDE 0.9% 1,000 ML IV PRN (10:39)
[2018-03-06] MEDS: SIMVASTATIN 40 MG TABLET PO SCH (16:59)
[2018-03-06] MEDS ORDERED: PHYTONADIONE 5 MG/5 ML ORAL.SYR PO ONE (17:12)
[2018-03-06] MEDS: ESTROGENS (CONJ) 0.625 MG TABLET PO SCH (21:10)
[2018-03-06 21:13] LABS: Hematocrit 31.8 VOL% (35.7-47.0)
[2018-03-06 21:14] LABS: Hemoglobin 10.8 GM/DL (12.0-16.0)
[2018-03-07] MEDS: INSULIN REGULAR 100 UNIT/ML SUBCUT SCH ×4 (00:47→18:43)
[2018-03-07 04:00] LABS: Basophils # 0.1 10*3/uL (0.0-0.2); Basophils % 0.5 % (0.0-0.8); Eosinophils # 0.1 10*3/uL (0.0-0.87); Eosinophils % 1.2 % (0.00-10.9); Hematocrit 30.7 VOL% (35.7-47.0); Hemoglobin 10.6 GM/DL (12.0-16.0); Immature Granulocytes % 4.1 %; Immature Granulocytes Absolute 0.38 #; Lymphocytes # 1.3 10*3/uL (1.4-4.0); Lymphocytes % 14.5 % (21.3-54.2); Mean Corpuscular HGB Conc 34.5 GM/DL (32-36); Mean Corpuscular Hemoglobin 31 PG (27-34); Mean Corpuscular Volume 88.2 FL (87-102); Mean Platelet Volume 10.1 FL (9.6-12.0); Monocytes # 1.3 10*3/uL (0.11-0.8); Monocytes % 14.1 % (1.7-12.7); Neutrophils % 65.6 % (38.7-73.9); Platelet Count 260 T/CUMM (130-400); Red Blood Count 3.48 MC/CUMM (3.8-5.5); Red Cell Distribution Width 14.2 % (9.3-17.3); White Blood Count 9.2 T/CUMM (4-12)
[2018-03-07 04:26] LABS: Calcium 7.2 MG/DL (8.5-10.1); Osmolality,Calculated 285.7 MOS/KG (273-304); Potassium 3.5 MMOL/L (3.5-5.1)
[2018-03-07 04:49] LABS: Band Neutrophils 1 % (0-10); Eosinophils 1 % (0-10); Hypochromasia 1+; Lymphocytes 15 % (20-55); Microcytosis Slight; Platelet Estimate Adequate; Segmented Neutrophils 74 % (50-85); Total Cells Counted 100
[2018-03-07] MEDS: CLINDAMYCIN 300 MG CAPSULE PO SCH ×3 (06:01→21:02)
[2018-03-07] MEDS: POLYCARBOPHIL 625 MG TABLET PO SCH ×3 (09:40→20:55)
[2018-03-07] MEDS: METOPROLOL TARTRATE 25 MG TABLET PO SCH ×2 (09:40→20:56)
[2018-03-07] MEDS: PANTOPRAZOLE 40 MG TABLET PO SCH ×2 (09:43→20:55)
[2018-03-07] MEDS: CEFUROXIME 500 MG TABLET PO SCH ×2 (09:43→20:55)
[2018-03-07] MEDS: FUROSEMIDE 40 MG TABLET PO SCH (09:43)
[2018-03-07] MEDS: FERROUS SULFATE 325 MG TABLET PO SCH ×2 (09:43→20:56)
[2018-03-07] MEDS: NYSTATIN 500,000 UNIT/5 ML UDCUP SWISH/SWAL SCH ×4 (09:44→20:55)
[2018-03-07] MEDS: FLUTICASONE 50 MCG NASAL SPRAY 16 GM BOTTLE BOTH NARES SCH ×2 (09:44→20:59)
[2018-03-07] MEDS: POLYETHYLENE GLYCOL POWDER 17 GM PACK PO SCH (09:44)
[2018-03-07] MEDS: POTASSIUM CHLORIDE 20 MEQ TABLET PO PRN ×2 (14:40→17:12)
[2018-03-07] MEDS: SIMVASTATIN 40 MG TABLET PO SCH (17:12)
[2018-03-07] MEDS: ESTROGENS (CONJ) 0.625 MG TABLET PO SCH (20:56)
[2018-03-08] MEDS: INSULIN REGULAR 100 UNIT/ML SUBCUT SCH ×4 (00:01→17:12)
[2018-03-08] MEDS: CLINDAMYCIN 300 MG CAPSULE PO SCH ×3 (05:28→21:15)
[2018-03-08 06:01] LABS: Basophils # 0.1 10*3/uL (0.0-0.2); Basophils % 0.7 % (0.0-0.8); Eosinophils # 0.1 10*3/uL (0.0-0.87); Eosinophils % 1.4 % (0.00-10.9); Hematocrit 31.1 VOL% (35.7-47.0); Hemoglobin 10.6 GM/DL (12.0-16.0); Immature Granulocytes % 4.6 %; Immature Granulocytes Absolute 0.39 #; Lymphocytes # 1.3 10*3/uL (1.4-4.0); Lymphocytes % 15.5 % (21.3-54.2); Mean Corpuscular HGB Conc 34.1 GM/DL (32-36); Mean Corpuscular Hemoglobin 30 PG (27-34); Mean Corpuscular Volume 88.9 FL (87-102); Mean Platelet Volume 10.8 FL (9.6-12.0); Monocytes # 1.1 10*3/uL (0.11-0.8); Neutrophils # 5.4 10*3/uL (1.4-7.4); Neutrophils % 64.8 % (38.7-73.9); Platelet Count 290 T/CUMM (130-400); Red Cell Distribution Width 14.1 % (9.3-17.3); White Blood Count 8.4 T/CUMM (4-12)
[2018-03-08 06:09] LABS: Calcium 7.6 MG/DL (8.5-10.1); Osmolality,Calculated 281.8 MOS/KG (273-304); Potassium 3.8 MMOL/L (3.5-5.1)
[2018-03-08 06:54] LABS: Band Neutrophils 1 % (0-10); Eosinophils 3 % (0-10); Hypochromasia 1+; Lymphocytes 17 % (20-55); Platelet Estimate Adequate; Segmented Neutrophils 74 % (50-85); Total Cells Counted 100
[2018-03-08 06:55] LABS: Microcytosis Slight
[2018-03-08] MEDS: POLYCARBOPHIL 625 MG TABLET PO SCH ×3 (09:06→20:46)
[2018-03-08] MEDS: CEFUROXIME 500 MG TABLET PO SCH ×2 (09:07→20:46)
[2018-03-08] MEDS: PANTOPRAZOLE 40 MG TABLET PO SCH ×2 (09:07→20:46)
[2018-03-08] MEDS: METOPROLOL TARTRATE 25 MG TABLET PO SCH ×2 (09:07→20:46)
[2018-03-08] MEDS: FUROSEMIDE 40 MG TABLET PO SCH (09:07)
[2018-03-08] MEDS: FLUTICASONE 50 MCG NASAL SPRAY 16 GM BOTTLE BOTH NARES SCH ×2 (09:08→21:15)
[2018-03-08] MEDS: POLYETHYLENE GLYCOL POWDER 17 GM PACK PO SCH (09:09)
[2018-03-08] MEDS: NYSTATIN 500,000 UNIT/5 ML UDCUP SWISH/SWAL SCH ×4 (09:09→20:45)
[2018-03-08] MEDS: FERROUS SULFATE 325 MG TABLET PO SCH ×2 (09:10→20:45)
[2018-03-08] MEDS: SIMVASTATIN 40 MG TABLET PO SCH (17:16)
[2018-03-09] MEDS: INSULIN REGULAR 100 UNIT/ML SUBCUT SCH ×4 (01:02→17:06)
[2018-03-09] MEDS: CLINDAMYCIN 300 MG CAPSULE PO SCH ×3 (05:43→21:13)
[2018-03-09 06:37] LABS: Basophils % 0.4 % (0.0-0.8); Eosinophils # 0.1 10*3/uL (0.0-0.87); Eosinophils % 1.2 % (0.00-10.9); Hematocrit 30.7 VOL% (35.7-47.0); Hemoglobin 10.2 GM/DL (12.0-16.0); Immature Granulocytes % 3.3 %; Lymphocytes # 1.5 10*3/uL (1.4-4.0); Lymphocytes % 16.2 % (21.3-54.2); Mean Corpuscular HGB Conc 33.2 GM/DL (32-36); Mean Corpuscular Hemoglobin 30 PG (27-34); Mean Corpuscular Volume 89.5 FL (87-102); Mean Platelet Volume 10.5 FL (9.6-12.0); Monocytes # 1.1 10*3/uL (0.11-0.8); Monocytes % 11.6 % (1.7-12.7); Neutrophils # 6.1 10*3/uL (1.4-7.4); Neutrophils % 67.3 % (38.7-73.9); Platelet Count 286 T/CUMM (130-400); Red Blood Count 3.43 MC/CUMM (3.8-5.5); Red Cell Distribution Width 13.8 % (9.3-17.3)
[2018-03-09 06:46] LABS: Calcium 7.7 MG/DL (8.5-10.1); Osmolality,Calculated 280.7 MOS/KG (273-304); Potassium 3.7 MMOL/L (3.5-5.1)
[2018-03-09] MEDS: POTASSIUM CHLORIDE 20 MEQ TABLET PO PRN (08:38)
[2018-03-09] MEDS: FERROUS SULFATE 325 MG TABLET PO SCH ×2 (08:39→21:14)
[2018-03-09] MEDS: METOPROLOL TARTRATE 25 MG TABLET PO SCH ×2 (08:39→21:14)
[2018-03-09] MEDS: POLYETHYLENE GLYCOL POWDER 17 GM PACK PO SCH (08:40)
[2018-03-09] MEDS: FUROSEMIDE 40 MG TABLET PO SCH (08:40)
[2018-03-09] MEDS: CEFUROXIME 500 MG TABLET PO SCH ×2 (08:40→21:14)
[2018-03-09] MEDS: NYSTATIN 500,000 UNIT/5 ML UDCUP SWISH/SWAL SCH ×4 (08:40→21:13)
[2018-03-09] MEDS: FLUTICASONE 50 MCG NASAL SPRAY 16 GM BOTTLE BOTH NARES SCH ×2 (08:40→21:14)
[2018-03-09] MEDS: PANTOPRAZOLE 40 MG TABLET PO SCH ×2 (08:40→21:14)
[2018-03-09] MEDS: POLYCARBOPHIL 625 MG TABLET PO SCH ×3 (10:44→21:21)
[2018-03-09] MEDS: SIMVASTATIN 40 MG TABLET PO SCH (16:12)
[2018-03-10] MEDS: INSULIN REGULAR 100 UNIT/ML SUBCUT SCH ×5 (00:30→23:52)
[2018-03-10 06:05] LABS: Basophils # 0.1 10*3/uL (0.0-0.2); Basophils % 0.6 % (0.0-0.8); Eosinophils # 0.2 10*3/uL (0.0-0.87); Eosinophils % 1.7 % (0.00-10.9); Hematocrit 29.7 VOL% (35.7-47.0); Immature Granulocytes % 2.2 %; Immature Granulocytes Absolute 0.19 #; Lymphocytes # 1.4 10*3/uL (1.4-4.0); Lymphocytes % 16.4 % (21.3-54.2); Mean Corpuscular HGB Conc 33.7 GM/DL (32-36); Mean Corpuscular Hemoglobin 30 PG (27-34); Mean Corpuscular Volume 89.7 FL (87-102); Mean Platelet Volume 10.4 FL (9.6-12.0); Monocytes # 0.9 10*3/uL (0.11-0.8); Monocytes % 10.1 % (1.7-12.7); Platelet Count 288 T/CUMM (130-400); Red Blood Count 3.31 MC/CUMM (3.8-5.5); Red Cell Distribution Width 13.3 % (9.3-17.3); White Blood Count 8.7 T/CUMM (4-12)
[2018-03-10] MEDS: CLINDAMYCIN 300 MG CAPSULE PO SCH ×3 (06:17→21:05)
[2018-03-10 06:42] LABS: Calcium 7.4 MG/DL (8.5-10.1); Osmolality,Calculated 277.8 MOS/KG (273-304); Potassium 3.8 MMOL/L (3.5-5.1)
[2018-03-10 07:23] LABS: Band Neutrophils 3 % (0-10); Eosinophils 3 % (0-10); Lymphocytes 12 % (20-55); Segmented Neutrophils 74 % (50-85); Total Cells Counted 100
[2018-03-10 07:27] LABS: Anisocytosis 1+
[2018-03-10 07:28] LABS: Platelet Estimate Normal
[2018-03-10] MEDS: POLYCARBOPHIL 625 MG TABLET PO SCH ×3 (08:42→20:48)
[2018-03-10] MEDS: METOPROLOL TARTRATE 25 MG TABLET PO SCH ×2 (08:43→20:49)
[2018-03-10] MEDS: FUROSEMIDE 40 MG TABLET PO SCH (08:43)
[2018-03-10] MEDS: NYSTATIN 500,000 UNIT/5 ML UDCUP SWISH/SWAL SCH ×4 (08:43→20:48)
[2018-03-10] MEDS: FERROUS SULFATE 325 MG TABLET PO SCH ×2 (08:43→20:48)
[2018-03-10] MEDS: POLYETHYLENE GLYCOL POWDER 17 GM PACK PO SCH (08:43)
[2018-03-10] MEDS: PANTOPRAZOLE 40 MG TABLET PO SCH ×2 (08:43→20:49)
[2018-03-10] MEDS: CEFUROXIME 500 MG TABLET PO SCH ×2 (08:43→20:48)
[2018-03-10] MEDS: FLUTICASONE 50 MCG NASAL SPRAY 16 GM BOTTLE BOTH NARES SCH ×2 (08:44→20:49)
[2018-03-10] MEDS: SIMVASTATIN 40 MG TABLET PO SCH (17:23)
[2018-03-11 05:31] LABS: Basophils # 0.1 10*3/uL (0.0-0.2); Basophils % 0.7 % (0.0-0.8); Eosinophils # 0.1 10*3/uL (0.0-0.87); Eosinophils % 1.7 % (0.00-10.9); Hematocrit 30.2 VOL% (35.7-47.0); Hemoglobin 10.2 GM/DL (12.0-16.0); Immature Granulocytes % 2.3 %; Immature Granulocytes Absolute 0.17 #; Lymphocytes # 1.4 10*3/uL (1.4-4.0); Lymphocytes % 19.2 % (21.3-54.2); Mean Corpuscular HGB Conc 33.8 GM/DL (32-36); Mean Corpuscular Hemoglobin 30 PG (27-34); Mean Corpuscular Volume 88.8 FL (87-102); Mean Platelet Volume 10.3 FL (9.6-12.0); Monocytes # 0.7 10*3/uL (0.11-0.8); Monocytes % 8.8 % (1.7-12.7); Neutrophils # 5.1 10*3/uL (1.4-7.4); Neutrophils % 67.3 % (38.7-73.9); Platelet Count 276 T/CUMM (130-400); Red Cell Distribution Width 13.2 % (9.3-17.3); White Blood Count 7.5 T/CUMM (4-12)
[2018-03-11 05:40] LABS: Calcium 7.5 MG/DL (8.5-10.1); Potassium 3.6 MMOL/L (3.5-5.1)
[2018-03-11 05:50] LABS: Hypochromasia 1+
[2018-03-11 05:51] LABS: Platelet Estimate Adequate
[2018-03-11] MEDS: CLINDAMYCIN 300 MG CAPSULE PO SCH ×3 (05:59→21:13)
[2018-03-11] MEDS: INSULIN REGULAR 100 UNIT/ML SUBCUT SCH ×4 (06:13→23:18)
[2018-03-11] MEDS: POLYCARBOPHIL 625 MG TABLET PO SCH ×3 (08:58→20:50)
[2018-03-11] MEDS: METOPROLOL TARTRATE 25 MG TABLET PO SCH ×2 (08:59→20:49)
[2018-03-11] MEDS: CEFUROXIME 500 MG TABLET PO SCH ×2 (08:59→20:50)
[2018-03-11] MEDS: PANTOPRAZOLE 40 MG TABLET PO SCH ×2 (09:00→20:50)
[2018-03-11] MEDS: FLUTICASONE 50 MCG NASAL SPRAY 16 GM BOTTLE BOTH NARES SCH ×2 (09:00→20:52)
[2018-03-11] MEDS: FUROSEMIDE 40 MG TABLET PO SCH (09:00)
[2018-03-11] MEDS: POLYETHYLENE GLYCOL POWDER 17 GM PACK PO SCH (09:00)
[2018-03-11] MEDS: NYSTATIN 500,000 UNIT/5 ML UDCUP SWISH/SWAL SCH ×4 (09:00→20:48)
[2018-03-11] MEDS: FERROUS SULFATE 325 MG TABLET PO SCH ×2 (09:00→20:50)
[2018-03-11] MEDS: SIMVASTATIN 40 MG TABLET PO SCH (18:05)
[2018-03-12] MEDS: INSULIN REGULAR 100 UNIT/ML SUBCUT SCH ×2 (05:34→11:39)
[2018-03-12] MEDS: FUROSEMIDE 40 MG TABLET PO SCH (09:21)
[2018-03-12] MEDS: NYSTATIN 500,000 UNIT/5 ML UDCUP SWISH/SWAL SCH ×2 (09:22→13:18)
[2018-03-12] MEDS: PANTOPRAZOLE 40 MG TABLET PO SCH (09:22)
[2018-03-12] MEDS: FLUTICASONE 50 MCG NASAL SPRAY 16 GM BOTTLE BOTH NARES SCH (09:22)
[2018-03-12] MEDS: POLYCARBOPHIL 625 MG TABLET PO SCH (09:22)
[2018-03-12] MEDS: FERROUS SULFATE 325 MG TABLET PO SCH (09:22)
[2018-03-12] MEDS: METOPROLOL TARTRATE 25 MG TABLET PO SCH (09:22)
[2018-03-12] MEDS: POLYETHYLENE GLYCOL POWDER 17 GM PACK PO SCH (09:22)
[2018-03-12] MEDS ORDERED: TUBERCULIN SKIN TEST 0.1 ML SYRINGE INTRADERM ONE (11:00)
[2018-03-12 11:52] VITALS: BP 102/50
== END 2018-03-12 14:30 | disposition swing bed (61) | DRG 871 ==
LOC: EDUNIT# → N.ED 23:30 → N.EDINP 02-25 02:42 → SUATTDRO 02-25 02:42 → N.ICU 02-25 03:18 → N.5E 03-01 17:01 → N.TELES 03-03 08:04
PROVIDERS: ADMIT Internal Medicine; ATTEND Internal Medicine Geriatric Medicine